=== PATIENT | male | born 1950 | race African-American/Black ===

== ENCOUNTER 2017-10-28 07:56 | Day surgery (SDC) | payer OTHER ==
[2017-10-27 13:30] VITALS: BMI 27.6
[~2017-10-28 07:56] MED LIST: CYCLOPENTOLATE HCL 1% OPHTH SOLN 2 ML BOTTLE OP SCH; MOXIFLOXACIN HCL 0.5% OPHTHALMIC 3 ML BOTTLE OP SCH; PHENYLEPHRINE 2.5% OPHTH SOLN 15 ML BOTTLE OP SCH; TOBRAMYCIN/DEXAMETHASONE OPHTH. OINTMENT 1 TUBE TP ONE; TROPICAMIDE 1% OPHTH SOLN 15 ML BOTTLE OP SCH
[2017-10-28] MEDS ORDERED: PHENYLEPHRINE 2.5% OPHTH SOLN 15 ML BOTTLE ONE (08:11)
[2017-10-28] MEDS ORDERED: TROPICAMIDE 0.5% OPHTHALMIC SOLN 15 ML BOTTLE ONE (08:11)
[2017-10-28] MEDS ORDERED: MOXIFLOXACIN HCL 0.5% OPHTHALMIC 3 ML BOTTLE ONE (08:11)
[2017-10-28] MEDS ORDERED: CYCLOPENTOLATE HCL 1% OPHTH SOLN 2 ML BOTTLE ONE (08:11)
[2017-10-28] MEDS ORDERED: LIDOCAINE HCL/PF 2% SDV 5ML VIAL PNB ONE (08:17)
[2017-10-28] MEDS ORDERED: BUPIVACAINE HCL/PF 0.75% 10 ML VIAL RB ONE (08:17)
[2017-10-28] MEDS ORDERED: TOBRAMYCIN/DEXAMETHASONE OPHTH. OINTMENT 1 TUBE ONE (08:48)
[2017-10-28] MEDS ORDERED: TETRACAINE 0.5% OPHTH SOLN 2 ML BOTTLE ONE (08:48)
[2017-10-28] MEDS ORDERED: LIDOCAINE HCL/PF 2% SDV 5ML VIAL ONE ×2 (08:48→09:00)
[2017-10-28] MEDS ORDERED: LIDOCAINE HCL/PF 1% SDV 5ML VIAL ONE (08:48)
[2017-10-28] MEDS ORDERED: BUPIVACAINE HCL/PF 0.75% 10 ML VIAL ONE (08:49)
--- NOTE | 2017-10-28 08:56 | HP ---
History & Physical Update - History History: No Change - Physical Physical: No Change - Assessment Assessment: No Change - Plan Plan: No Change (Vicenta Rivas)
[2017-10-28] MEDS ORDERED: MIDAZOLAM HCL 2 MG/2 ML SINGLE DOSE VIAL ONE (09:01)
[2017-10-28] MEDS ORDERED: PROPOFOL 20 ML ONE ×2 (09:01)
[2017-10-28] MEDS ORDERED: TETRACAINE 0.5% OPHTH SOLN 2 ML BOTTLE TP ONE (09:12)
[2017-10-28] MEDS ORDERED: LIDOCAINE HCL 1% PRESERVATIVE FREE - 30ML VIAL IO ONE (09:25)
[2017-10-28] MEDS ORDERED: CHONDROITIN SU A/HYALUR SOD 1 KIT IO ONE (09:27)
[2017-10-28] MEDS ORDERED: TOBRAMYCIN/DEXAMETHASONE OPHTH. OINTMENT 1 TUBE TP ONE (09:53)
[2017-10-28 11:01] VITALS: BP 139/79; PULSE 66; TEMP 98.3
--- NOTE | 2017-10-28 13:58 | OP ---
DATE OF OPERATION: 10/28/2017 SURGEON: Meño Dumont MD PREOPERATIVE DIAGNOSIS: Cataract, left eye. OPERATION: Phacoemulsification and intraocular lens implantation, left eye. POSTOPERATIVE DIAGNOSIS: Cataract, left eye. ANESTHESIA: Local with intravenous sedation. COMPLICATIONS: None. BLOOD LOSS: None. SPECIMENS: None. BRIEF HISTORY: The patient is 57-year-old man with a past medical history of diabetes, who presents with decreased vision in the left eye down to 20/50 minus due to a 2+ nuclear sclerotic lens with a cortical opacity. After the risks, benefits, and alternatives to cataract surgery were discussed with the patient, he consented to surgery for the left eye. DESCRIPTION OF PROCEDURE: The patient was brought to the operating room and administered retrobulbar block after receiving intravenous sedation. He was then prepped and draped in the usual sterile fashion, and an eyelid speculum was inserted in the left eye. A paracentesis was made and the anterior chamber was inflated with nonpreserved lidocaine. This was followed by injection of Viscoat. A groove was made in the superotemporal clear cornea which was tunneled forward with a crescent blade. The anterior chamber was entered with a 2.75 keratome. At this point it was noted that there was a poorly dilating pupil down to about 4 mm; however, the pupil would constrict further when the anterior chamber shallowed slightly. It was determined to place 4 iris hooks around the pupil in order to enlarge and stabilize the pupil. This was done without incident. A cystotome was used to make an incision in the center of the capsule, and a continuous curvilinear capsulorrhexis was created. The lens was hydrodissected until it was found to rotate freely within the capsular bag. Phacoemulsification was then used to remove the lens in its entirety. Irrigation and aspiration were used to remove residual cortical material. The anterior chamber and capsular bag were reinflated with Provisc, and a 22.5 diopter [id number] AcrySof intraocular lens was injected into the capsular bag using the [place] injector. The lens was dialed into place using TwoChop hook. Irrigation and aspiration were used to remove residual Viscoelastic. The wound was stromally hydrated until it was found to be watertight and the eye was at an appropriate pressure. The eyelid speculum was removed from the eye, and TobraDex ointment and a patch and shield were placed over the left eye. The patient was transferred to the recovery room in stable condition and will follow up tomorrow. Vaughn [id number] MTDD
== END 2017-10-28 11:15 | disposition home or self-care (01) ==
LOC: JASU-SURG 07:56
PROVIDERS: ATTEND Ophthalmology
PROC: 08RK3JZ Replacement of Left Lens with Synthetic Substitute, Percutaneous Approach (ICD-10-PCS; principal; 2017-10-28 09:00)
DX: H25.12 Age-related nuclear cataract, left eye (principal); H57.09 Other anomalies of pupillary function
CPT/HCPCS: 82962

== ENCOUNTER 2018-07-01 10:08 | Emergency (ER) | payer OTHER ==
[2018-07-01 10:26] VITALS: BMI 27.3
--- NOTE | 2018-07-01 11:08 | PDOC ---
Attending Attestation - HPI HPI: 07/01/18 12:26 The patient is a 68-year-old male with past medical history significant for DM and HTN presents to the emergency department with an abscess to the L. side of the face. The patient presents with a boil to the angle of the jaw, with occasional purulent drainage. The patient currently denies any pain, states the pain varies in severity the patient report following up with PCP in March regarding the facial abscess, who referred the patient to a CT scan. The patient reports secondary to insurance issues, and the patient was unable to get the scan. Denies fever, chills, drainage inside the mouth, no prior similar incident. Allergies: NKA Social history: Current everyday smoker. No alcohol or recreational drug use reported. Surgical history: None reported. PCP: Dr. Moura. - Physicial Exam PE: 07/01/18 12:32 GENERAL: The patient is in no acute distress. LUNGS: Breath sounds equal, clear to auscultation bilaterally. No wheezes, and no crackles. HEART:Regular rate and rhythm, normal S1 and S2 without murmur, rub or gallop. ABDOMEN: Soft, nontender. No guarding, no rebound. No masses palpable. SKIN: +2 cm in diameter, fluctuant, swelling to the angle of the mandible, nontender, no redness, warmth or draining noted. Rest of the skin: Warm, Dry, normal turgor, no rashes or lesions noted. - Medical Decision Making 07/01/18 12:26 Documentation prepared by Chrystal Osei, acting as family practice medical doctor for Mily Begum MD. <Chrystal Osei - Last Filed: 07/01/18 12:36> - Medical Decision Making 07/01/18 15:[address] Earl, surgery; awaiting call back. 07/01/18 15:11 Case d/w Dr. Earl. 07/01/18 15:[address] Burleson, ENT; awaiting call back. <Shannen Barriga - Last Filed: 07/01/18 15:16> - Resident Resident Name: Courtney Arrieta - ED Attending Attestation I have performed the following: I have examined & evaluated the patient, The case was reviewed & discussed with the resident, I agree w/resident's findings & plan, Exceptions are as noted - HPI HPI: 07/02/18 11:21 68 yo M presenting to the ER for evaluation of swelling at the angle of the mandible Present for the past 3 months It increases in size and decreases in size No fever or chills Was supposed to follow up for CT (Sent by pmd) but his insurance did not cover the imaging Pt presents today because the swelling has not improved and he was unable to get imaging No pain - Physicial Exam PE: 07/02/18 11:22 GENERAL: The patient is in no acute distress. LUNGS: Breath sounds equal, clear to auscultation bilaterally. Nowheezes, and no crackles. HEART:Regular rate and rhythm, normal S1 and S2 without murmur, rub or gallop. ABDOMEN: Soft, nontender. No guarding, no rebound. No masses palpable. SKIN: +2 cm in diameter, fluctuant, swelling to the angle of the mandible, nontender, no redness, warmth or draining noted. Rest of the skin: Warm, Dry, normal turgor, no rashes or lesions noted. - Medical Decision Making CT demonstrates rim enhancing abscess vs.; cyst Call placed to Dr Earl, this is outside of her scope Call placed to Dr Burleson He will see this patient in the ER, requesting dose of Zosyn Pt signed out to Dr Craig pending assessment by Dr Burleson Clinical impression: cyst, initial presentation <Mily Begum - Last Filed: 07/02/18 11:24>
--- NOTE | 2018-07-01 11:24 | PDOC ---
History of Present Illness - General Chief Complaint: Abscess Boil Stated Complaint: ABSCESS BOIL Time Seen by Provider: 07/01/18 11:07 - History of Present Illness Initial Comments: Thomas Trivedi is a 68yo man with a PMH of HTN, HLD, DM, and BPH who presents due to a "boil" on the left side of his face. It is located over the angle of the jaw. He reports that he went to see his PMD Dr Moura in March, and he was told to get a CT scan. However, he was unable to do so due to insurance issues. He went back to see Dr Moura, but he states nothing was done at the time. Mr Trivedi reports that the boil occasionally "bursts" with drainage of pus, then clear fluid and blood. He states that the size fluctuates, though it tends to increase until bursting. The level of pain also fluctuates; he denies any pain recently. He denies that the boil prevents him from opening his mouth, and he has never noted any discharge or drainage into his mouth. He denies fevers/ chills, red streaking over or around the boil, or similar incidents in the past. He denies any other associated symptoms. Past History - Past Medical History Allergies/Adverse Reactions: Allergies Allergy/AdvReac Type Severity Reaction Status Date / Time No Known Allergies Allergy Verified 07/01/18 10:21 Home Medications: Ambulatory Orders Amlodipine Besylate 10 mg PO DAILY 10/28/17 Atorvastatin Ca [Lipitor] 40 mg PO HS 10/28/17 Glipizide [Glipizide ER] 2.5 mg PO DAILY 10/28/17 Losartan Potassium [Cozaar] 100 mg PO DAILY 10/28/17 Metformin HCl [Metformin HCl ER] 1,000 mg PO BID 10/28/17 Tamsulosin HCl [Flomax] 0.4 mg PO DAILY 10/28/17 Triamterene/Hydrochlorothiazid [Triamterene-Hctz 37.5-25 mg Cp] 1 each PO DAILY 10/28/17 COPD: No Diabetes: Yes HTN: Yes - Immunization History Immunization Up to Date: Yes - Suicide/Smoking/Psychosocial Hx Smoking History: Current some day smoker Have you smoked in the past 12 months: No Number of Cigarettes Smoked Daily: 1 If you are a former smoker, when did you quit?: 1yr ago Information on smoking cessation initiated: No Hx Alcohol Use: No Drug/Substance Use Hx: No Substance Use Type: None Hx Substance Use Treatment: No Review of Systems - Review of Systems Comments:: General: No fevers, no chills, no weight or appetite change, no malaise HEENT: No changes in vision, no changes in hearing, no congestion, no sore throat CV: No chest pain, no palpitations, no LE edema Pulm: No SOB, no cough, no wheezing GI: No nausea or vomiting, no change in bowel habits, no melena : No frequency, no urgency, no dysuria Musc: No back pain, no joint swelling, no recent injury Skin: See HPI. No rashes. Endo: No excessive thirst, no heat/cold intolerance Heme: No unusual bruising or bleeding, no swollen glands Neuro: No syncope, no numbness/tingling, no focal weakness Vasc: No claudication Psych: No recent change in mood, no SI or HI *Physical Exam - Vital Signs Last Vital Signs Temp Pulse Resp BP Pulse Ox 98.0 F 70 18 167/77 100 07/01/18 10:21 07/01/18 10:21 07/01/18 10:21 07/01/18 10:21 07/01/18 10:21 - Physical Exam Comments: General: Comfortable, no acute distress HEENT: PERRL, EOMI, MMM, voice normal, normal neck ROM, no LAD. Swollen, fluctuant v indurated area over left mandibular angle with small scabbed area in the center. Cards: RRR, no murmur appreciated Pulm: Comfortable on room air, clear to auscultation bilaterally Ext: Atraumatic. No LE edema. ROM intact. Strength 5/5 and equal bilaterally Vasc: Extremities WWP. Skin: Normal color, no rashes or lesions Neuro: A&Ox3, CN grossly intact, normal speech, motor/sensory grossly intact and symmetric Psych: Mood appropriate to situation ED Treatment Course - LABORATORY CBC & Chemistry Diagram: 07/01/18 12:25 07/01/18 12:25 Medical Decision Making - Medical Decision Making 07/01/18 12:06 Thomas Trivedi is a 68yo man with a PMH of HTN, NIIDM, HLD who presents with an abscess/boil vs cyst since early March. - Given history of recurrent growth and "bursting" most likely abscess, boil, or cyst - No clear involvement of the mouth or ear - CT face w/o contrast ordered to evaluate depth and involvement. 07/01/18 13:25 - Labs completed. Reviewed. No concerning abnormalities. - CT needs to be completed. 07/01/18 14:17 - CT reviewed. No fluid collection noted, appears to be tissue swelling only. Radiology read pending - Will likely need follow up with surgery for removal. May be a cyst that has become intermittently infected. 07/01/18 15:12 - CT read. 3 x 1.7 rim-enhancing, fluid-filled lesion c/w abscess v infected cyst - Call placed to surgery. Spoke to Dr Earl, but group does not do head/neck procedures - Call placed to Dr Burleson in ENT. 07/01/18 15:41 - Spoke to Dr Burleson. Recommending IV antibiotic loading. Will be in ED around 7pm - Discussed with patient. He will wait to see the specialist. He agrees to alert ED staff if he decides to leave prior to seeing Dr Burleson so that he can be discharged with appropriate medications and instructions. - Unasyn IV ordered. - Will need to be ED obs. 07/01/18 19:27 - Patient still waiting for eval by ENT - Latest vitals with BP 180/80. Will check repeat vitals, if still hypertensive will need intervention. - ED obs, spoke to medicine team again. Patient signed out to Dr Pineda for remainder of care. Courtney Arrieta PGY1 *DC/Admit/Observation/Transfer Diagnosis at time of Disposition: Swelling of mandible - Discharge Dispostion Condition at time of disposition: Stable Decision to Admit order: No - Referrals Referrals: Kamila Moura [Primary Care Provider] - Jacky Burleson MD [Staff Physician] - - Patient Instructions Additional Instructions: Discharge Instructions: You were seen in the emergency department for a swelling on the left side of your face. You had a CT scan that showed swelling but no collection of fluid or infection. You may have a cyst that will require surgical removal, but there was not any fluid that could be drained right away. If you notice that the area is becoming more red, painful, and swollen or if you notice thick white drainage, you may take medication such as ibuprofen ( 600mg or three tablets every 6-8 hours) for discomfort. Applying warm compresses may help with your symptoms. Please make an appointment to follow up with a surgeon for evaluation. You have been referred to the [facility] with Dr Earl or Dr Melo. Seek immediate medical care if the swollen area becomes severely painful, you notice redness that travels across your face/head, you have a high fever to 101F or higher, or you have neurological symptoms such as a drooping face or voice changes. - Post Discharge Activity
[2018-07-01 12:47] LABS: BASO % 0.9 % (0-2.0); EOS % 3.5 % (0-4.5); HEMATOCRIT 40.3 % (35.4-49); HEMOGLOBIN 12.8 GM/dL (11.7-16.9); MCH 27.9 pg (25.7-33.7); MCHC 31.7 g/dl (32.0-35.9); MEAN CELL VOLUME 88.2 fl (80-96); MONO % 8.7 % (3.8-10.2); NEUT % 44.9 % (42.8-82.8); PLATELET COUNT 269 K/MM3 (134-434); RBC 4.57 M/mm3 (4.00-5.60); RDW 12.6 % (11.9-15.9); WHITE BLOOD COUNT 4.9 K/mm3 (4.0-10.0)
[2018-07-01 12:53] LABS: INR 0.99 (0.83-1.09); PROTHROMBIN TIME (PATIENT) 11.7 SEC (9.7-13.0)
[2018-07-01 12:55] LABS: ACTIVATED PTT 29.7 SECONDS (25.2-36.5)
[2018-07-01 13:03] LABS: ALBUMIN 3.7 g/dl (3.4-5.0); ALK PHOS 95 U/L (45-117); ANION GAP 5 MMOL/L (8-16); BILIRUBIN,TOTAL 0.5 mg/dL (0.2-1); BLOOD UREA NITROGEN 13 mg/dL (7-18); CALCIUM 9.6 mg/dL (8.5-10.1); CHLORIDE 101 mmol/L (98-107); CO2 32 mmol/L (21-32); CREATININE 1.1 mg/dL (0.55-1.3); GLUCOSE,RANDOM 120 mg/dL (74-106); POTASSIUM 4.1 mmol/L (3.5-5.1); SGOT/AST 17 U/L (15-37); SGPT/ALT 23 U/L (13-61); SODIUM 138 mmol/L (136-145); TOT PROT 8.4 g/dl (6.4-8.2)
[2018-07-01 14:43] VITALS: TEMP 98.3
[2018-07-01] MEDS ORDERED: AMPICILLIN NA/SULBACTAM NA 3 GM in SODIUM CHLORIDE 100 ML IVPB ONE (15:37)
--- NOTE | 2018-07-01 19:11 | HP ---
CHIEF COMPLAINT: face welling PCP: HISTORY OF PRESENT ILLNESS: This is a 68 year old male with a history of hypertension and diabetes mellitus II, who presents with a three month history of left face swelling. Patient states he has a cyst inside his cheek. Now with intermittent puss draining from the outside. Denies fevers, chills, n, v, bleeding, open sores in mouth, dysphagia, problems with chewing. He has never had any skin boils or eruptions in the past. ER course was notable for: CT scan revealing a 3 x 1.7 x 1.3 cm rim-enhancing subcutaneous fluid structure is seen overlying the left masseter muscle which may be on the basis of an abscess versus infected cyst/boil. Recent Travel: non e PAST MEDICAL HISTORY: HTN, DMII PAST SURGICAL HISTORY: prostate Social History: Smoking:occasional in the past Alcohol:none Drugs: none Family History: Allergies No Known Allergies Allergy (Verified 07/01/18 10:21) HOME MEDICATIONS: Home Medications Medication Instructions Recorded Amlodipine Besylate 10 mg PO DAILY 10/28/17 Atorvastatin Ca [Lipitor] 40 mg PO HS 10/28/17 Glipizide [Glipizide ER] 2.5 mg PO DAILY 10/28/17 Losartan Potassium [Cozaar] 100 mg PO DAILY 10/28/17 Metformin HCl [Metformin HCl ER] 1,000 mg PO BID 10/28/17 Tamsulosin HCl [Flomax] 0.4 mg PO DAILY 10/28/17 Triamterene/Hydrochlorothiazid 1 each PO DAILY 10/28/17 [Triamterene-Hctz 37.5-25 mg Cp] REVIEW OF SYSTEMS CONSTITUTIONAL: Absent: fever, chills, diaphoresis, generalized weakness, malaise, loss of appetite, weight change HEENT: Absent: rhinorrhea, nasal congestion, throat pain, throat swelling, difficulty swallowing, mouth swelling, ear pain, eye pain, visual changes CARDIOVASCULAR: Absent: chest pain, syncope, palpitations, irregular heart rate, lightheadedness , peripheral edema RESPIRATORY: Absent: cough, shortness of breath, dyspnea with exertion, orthopnea, wheezing, stridor, hemoptysis GASTROINTESTINAL: Absent: abdominal pain, abdominal distension, nausea, vomiting, diarrhea, constipation, melena, hematochezia GENITOURINARY: Absent: dysuria, frequency, urgency, hesitancy, hematuria, flank pain, genital pain MUSCULOSKELETAL: Absent: myalgia, arthralgia, joint swelling, back pain, neck pain SKIN: Absent: left face swelling HEMATOLOGIC/IMMUNOLOGIC: Absent: easy bleeding, easy bruising, lymphadenopathy, frequent infections ENDOCRINE: Absent: unexplained weight gain, unexplained weight loss, heat intolerance, cold intolerance NEUROLOGIC: Absent: headache, focal weakness or paresthesias, dizziness, unsteady gait, seizure, mental status changes, bladder or bowel incontinence PSYCHIATRIC: Absent: anxiety, depression, suicidal or homicidal ideation, hallucinations. PHYSICAL EXAMINATION Vital Signs - 24 hr 07/01/18 07/01/18 10:21 14:42 Temperature 98.0 F 98.3 F Pulse Rate 70 Pulse Rate [ 62 Right Radial] Respiratory 18 18 Rate Blood Pressure 167/77 Blood Pressure 181/81 H [Left Arm] O2 Sat by Pulse 100 100 Oximetry (%) GENERAL: Awake, alert, and fully oriented, in no acute distress. HEAD: Normal with no signs of trauma. LEft cheek with large; ping pong ball sized, indurated region along jaw ling; no current pus or draining, with pin point area in the middle, non tender EYES: Pupils equal, round and reactive to light, extraocular movements intact, sclera anicteric, conjunctiva clear. No lid lag. EARS, NOSE, THROAT: Ears normal, nares patent, oropharynx clear without exudates. Moist mucous membranes. NECK: Normal range of motion, supple without lymphadenopathy, JVD, or masses. LUNGS: Breath sounds equal, clear to auscultation bilaterally. No wheezes, and no crackles. No accessory muscle use. HEART: Regular rate and rhythm, normal S1 and S2 without murmur, rub or gallop. ABDOMEN: Soft, nontender, not distended, normoactive bowel sounds, no guarding, no rebound, no masses. No hepatomegaly or splenomegaly. MUSCULOSKELETAL: Normal range of motion at all joints. No bony deformities or tenderness. No CVA tenderness. UPPER EXTREMITIES: 2+ pulses, warm, well-perfused. No cyanosis. No clubbing. No peripheral edema. LOWER EXTREMITIES: 2+ pulses, warm, well-perfused. No calf tenderness. No peripheral edema. NEUROLOGICAL: Cranial nerves II-XII intact. Normal speech. Normal gait. PSYCHIATRIC: Cooperative. Good eye contact. Appropriate mood and affect. SKIN: Warm, dry, normal turgor, no rashes or lesions noted, normal capillary refill. Laboratory Results - last 24 hr 07/01/18 07/01/18 07/01/18 12:25 12:25 12:25 WBC 4.9 RBC 4.57 Hgb 12.8 Hct 40.3 MCV 88.2 MCH 27.9 MCHC 31.7 L RDW 12.6 Plt Count 269 MPV 8.0 Absolute Neuts (auto) 2.2 Neutrophils % 44.9 Lymphocytes % 42.0 H Monocytes % 8.7 Eosinophils % 3.5 Basophils % 0.9 Nucleated RBC % 0 PT with INR 11.70 INR 0.99 PTT (Actin FS) 29.7 Sodium 138 Potassium 4.1 Chloride 101 Carbon Dioxide 32 Anion Gap 5 L BUN 13 Creatinine 1.1 Creat Clearance w eGFR > 60 Random Glucose 120 H Calcium 9.6 Total Bilirubin 0.5 AST 17 ALT 23 Alkaline Phosphatase 95 Total Protein 8.4 H Albumin 3.7 ASSESSMENT/PLAN: This is a 68 year old male with a history of hypertension, DMII, who presents with left face swelling for the past three months. CT revealing fluid structure. R.o abscess vs infected boil. #left face swelling; likely abscess -afebrile; wbc wnl -loaded with unasyn in eED -DR Burleson to evaluate for furhter work up; if need for inpatient IV antibiotics vs possible drain? /sx ? #hypertension: -hypertensive in ED -will recheck -restart home meds #DM: -sugar controlled -in stays inpatient will start SSS; bgm Dispo: currently ED obs; pending Dr Benjy armendariz; Visit type - Emergency Visit Emergency Visit: Yes Care time: The patient presented to the Emergency Department on the above date and was hospitalized for further evaluation of their emergent condition. - New Patient This patient is new to me today: Yes Date on this admission: 07/01/18 - Critical Care Critical Care patient: No
[2018-07-01 19:30] VITALS: BP 177/94; PULSE 60
--- NOTE | 2018-07-01 20:02 | CON.ENT ---
Consult Consult Specialty:: ENT Referred by:: Dr. Arrieta Reason for Consultation:: left facial swelling, rule out abscess - History of Present Illness History of Present Illness: 68yo M with 3 month hx left facial swelling, never any pain, sometimes gets swollen and pt expresses fluid out from it, size goes down, then fills up again. does not have any other similar skin problem in other parts of body. PMD Dr. Moura gave pt order for CT scan of this area months ago but pt did not have scan done. pt presented today, abscess considered, IV Unasyn administered, CT scan of neck obtained - History Source History Provided By: Patient, Medical Record - Alcohol/Substance Use Hx Alcohol Use: No - Smoking History Smoking history: Current some day smoker Have you smoked in the past 12 months: No Aproximately how many cigarettes per day: 1 If you are a former smoker, when did you quit?: 1yr ago Home Medications - Allergies Allergies/Adverse Reactions: Allergies Allergy/AdvReac Type Severity Reaction Status Date / Time No Known Allergies Allergy Verified 07/01/18 10:21 - Home Medications Home Medications: Ambulatory Orders Amlodipine Besylate 10 mg PO DAILY 10/28/17 Atorvastatin Ca [Lipitor] 40 mg PO HS 10/28/17 Glipizide [Glipizide ER] 2.5 mg PO DAILY 10/28/17 Losartan Potassium [Cozaar] 100 mg PO DAILY 10/28/17 Metformin HCl [Metformin HCl ER] 1,000 mg PO BID 10/28/17 Tamsulosin HCl [Flomax] 0.4 mg PO DAILY 10/28/17 Triamterene/Hydrochlorothiazid [Triamterene-Hctz 37.5-25 mg Cp] 1 each PO DAILY 10/28/17 Physical Exam-ENT Vital Signs: Vital Signs Temperature 98.3 F 07/01/18 14:42 Pulse Rate 60 07/01/18 19:30 Respiratory Rate 20 07/01/18 19:30 Blood Pressure 177/94 H 07/01/18 19:30 O2 Sat by Pulse Oximetry (%) 100 07/01/18 19:30 Constitutional: Yes: Well Nourished, No Distress, Calm Head: Yes: WNL Face: Yes: Other (left facial cystic swelling 3 cm, mobile, nontender, dry, has small areas of skin thinning, suspected prior drainage sites, but dry today. no induration or fluctuance, no local warmth) Eyes: Yes: WNL Nasal Passage: Yes: WNL Oral/Pharynx: Yes: Other (dentures, no lesions, oropharynx no drainage) Outer Ear: Yes: WNL Ear Canal: Yes: WNL Tympanic Membrane: Yes: WNL Neck: Yes: Other (no mass node trachea midline , no salivary or thyroid gland abnormality palpable.) Imaging - Results Chest X-ray: Report Reviewed, Image Reviewed (left facial cystic lesion, well circumscribed, subcutaneous plane, superficial to masseter muscle) Problem List - Problems (1) Swelling of mandible Assessment/Plan: 3 month hx of painless swelling of left face over vertical ramus of mandible. intermittent expression whitish material from the skin, size goes down then increases after clinically consistent with epidermal inclusion cyst no inflammatory signs and never any pain over 3 months. Recommend may cover with keflex discussed elective excision of this facial cyst in future follow-up in office 1-2 weeks Thank you for consultation, Jacky Burleson MD FACS Code(s): R22.0 - LOCALIZED SWELLING, MASS AND LUMP, HEAD
--- NOTE | 2018-07-01 20:05 | PN ---
Teaching Attending Note Name of Resident: Parviz Carl ATTENDING PHYSICIAN STATEMENT I saw and evaluated the patient. I reviewed the resident's note and discussed the case with the resident. I agree with the resident's findings and plan as documented. SUBJECTIVE: Patient is a 68 year old man with a PMH of HTN, HLD, NIDDM, Tobacco use and BPH who presents due to a "boil" on the left side of his face. It is located over the angle of the jaw. He reports that he went to see his PMD Dr Moura in March, and he was told to get a CT scan. However, he was unable to do so due to insurance issues. He went back to see Dr Moura, but he states nothing was done at the time. He says that the boil occasionally "bursts" with drainage of pus, then clear fluid and blood. He states that the size fluctuates, though it tends to increase until bursting. The level of pain also fluctuates; he denies any pain recently. He denies that the boil prevents him from opening his mouth, and he has never noted any discharge or drainage into his mouth. He denies fevers/ chills, red streaking over or around the boil, or similar incidents in the past. He denies any other associated symptoms. OBJECTIVE: Alert Vital Signs Period Temp Pulse Resp BP Sys/Cooper Pulse Ox Last 24 Hr 98.0 F-98.3 F 60-70 18-20 167-181/77-94 100-100 HEENT: No Jaundice, eye redness or discharge, PERRLA, EOMI. Swollen, fluctuant area over left mandibular angle with small scabbed area in the center. Normocephalic, atraumatic. External ears are normal and hearing is grossly intact. No nasal discharge. Neck: Supple, nontender. No palpable adenopathy or thyromegaly. No JVD Chest: Good effort. Clear to auscultation and percussion. Heart: Regular. No S3, rub or murmur Abdomen: Not distended, soft, nontender and no HSM. No rebound or guarding. Normoactive bowel sounds. Ext: Peripheral pulses intact. No leg edema. Skin: Warm and dry. No petechiae, rash or ecchymosis. Neuro: Alert. Oriented x3. CN 2-12 grossly intact. Sensation grossly intact in all four extremities and DTR are symmetric. Home Medications Medication Instructions Recorded Amlodipine Besylate 10 mg PO DAILY 10/28/17 Atorvastatin Ca [Lipitor] 40 mg PO HS 10/28/17 Glipizide [Glipizide ER] 2.5 mg PO DAILY 10/28/17 Losartan Potassium [Cozaar] 100 mg PO DAILY 10/28/17 Metformin HCl [Metformin HCl ER] 1,000 mg PO BID 10/28/17 Tamsulosin HCl [Flomax] 0.4 mg PO DAILY 10/28/17 Triamterene/Hydrochlorothiazid 1 each PO DAILY 10/28/17 [Triamterene-Hctz 37.5-25 mg Cp] Abnormal Lab Results 07/01/18 07/01/18 12:25 12:25 MCHC 31.7 L Lymphocytes % 42.0 H Anion Gap 5 L Random Glucose 120 H Total Protein 8.4 H ASSESSMENT AND PLAN: 1. Left facial abscess/cyst - Got one dose of Unasyn in the ER. ENT feels is likely a cyst rather than an abscess. Will send fluid for culture and give him Keflex. Follow up with PCP and ENT as outpatient. Restart home antihypertensive drugs to address uncontrolled hypertension - nonpharmacological measures like reduced salt intake and exercise emphasized. 2. DM - For now, we will hold the home diabetes drugs and implement sliding scale insulin regimen. Provide comprehensive diabetes care with patient teaching and counseling about the importance of euglycemia, eye care and foot care. 3. Tobacco Use We will provide patient all the necessary assistance to facilitate smoking cessation and prescribe Nicotine patch. 4. DVT prophylaxis - Lovenox 40 mg SQ q 24 hours. 5. Advance directives - Full code
--- NOTE | 2018-07-01 20:49 | DS ---
Physical Exam: SUBJECTIVE: Patient seen and examined at bedside. No new complaints. Was seen by ENT, who diagnosed a cyst and recommended PO keflex for 1 week. OBJECTIVE: Vital Signs Period Temp Pulse Resp BP Sys/Cooper Pulse Ox Last 24 Hr 98.0 F-98.3 F 60-70 18-20 167-181/77-94 100-100 PHYSICAL EXAM GENERAL: The patient is awake, alert, and fully oriented, in no acute distress. HEAD: Normal with no signs of trauma. EYES: PERRL, extraocular movements intact, sclera anicteric, conjunctiva clear. ENT: Ears normal, nares patent, oropharynx clear without exudates, moist mucous membranes. There is an area of swelling on the patient's left side at the angle of the mandible. The swelling is fluctuant, nontender, not warm to touch. NECK: Trachea midline, full range of motion, supple. LUNGS: Breath sounds equal, clear to auscultation bilaterally, no wheezes, no crackles, no accessory muscle use. HEART: Regular rate and rhythm, S1, S2 without murmur, rub or gallop. ABDOMEN: Soft, nontender, nondistended, normoactive bowel sounds, no guarding, no rebound, no hepatosplenomegaly, no masses. EXTREMITIES: 2+ pulses, warm, well-perfused, no edema. NEUROLOGICAL: Cranial nerves II through X grossly intact. Normal speech, gait not observed. PSYCH: Normal mood, normal affect. SKIN: Warm, dry, normal turgor, no rashes or lesions noted. LABS Laboratory Results - last 24 hr 07/01/18 07/01/18 07/01/18 12:25 12:25 12:25 WBC 4.9 RBC 4.57 Hgb 12.8 Hct 40.3 MCV 88.2 MCH 27.9 MCHC 31.7 L RDW 12.6 Plt Count 269 MPV 8.0 Absolute Neuts (auto) 2.2 Neutrophils % 44.9 Lymphocytes % 42.0 H Monocytes % 8.7 Eosinophils % 3.5 Basophils % 0.9 Nucleated RBC % 0 PT with INR 11.70 INR 0.99 PTT (Actin FS) 29.7 Sodium 138 Potassium 4.1 Chloride 101 Carbon Dioxide 32 Anion Gap 5 L BUN 13 Creatinine 1.1 Creat Clearance w eGFR > 60 Random Glucose 120 H Calcium 9.6 Total Bilirubin 0.5 AST 17 ALT 23 Alkaline Phosphatase 95 Total Protein 8.4 H Albumin 3.7 HOSPITAL COURSE: Date of Admission:07/01/18 This is a 68 year old male with a PMH HTN, DMII who presented to the ED with a three month history of left face swelling at the angle of the mandible. Patient endorsed expressing a whitish substance from the lesion after which the swelling goes down, but states that it fills up again. In the ED, he was found to be afebrile and hypertensive in the 180's. A CT of the head showed a 3 x 1.7 x 1.3 cm rim-enhancing subcutaneous fluid structure over the left masseter muscle. The patient was given 1 dose of Unasyn and ENT was consulted from the ED. Dr. Burleson assessed the patient and diagnosed epidermal inclusion cyst. He recommended Keflex for 1 week and f/u as an outpatient in 1-2 weeks to discuss elective excision of the lesion. Upon repeat assessment, the patient's BP had lowered into the 160's. He had no new complaints and agreed with the follow up plan discussed. The patient was discharged home with Keflex 500mg q6h for 7 days. Prescriptions for his BP medications were also provided as the patient stated that he ran out. He was encouraged to follow up with his PCP within 1 week of discharge home and also encouraged to follow up with Dr. Burleson in 1-2 weeks. Date of Discharge: 07/01/18 Minutes to complete discharge: 45 Discharge Summary Reason For Visit: ABSCESS BOIL Current Active Problems Swelling of mandible (Acute) Condition: Improved - Instructions Diet, Activity, Other Instructions: Discharge Instructions: You were seen in the emergency department for a swelling on the left side of your face. You had a CT scan that showed swelling but no collection of fluid or infection. You may have a cyst that will require surgical removal, but there was not any fluid that could be drained right away. If you notice that the area is becoming more red, painful, and swollen or if you notice thick white drainage, you may take medication such as ibuprofen ( 600mg or three tablets every 6-8 hours) for discomfort. Applying warm compresses may help with your symptoms. Please make an appointment to follow up with a surgeon for evaluation. You have been referred to the [facility] with Dr Earl or Dr Melo. Seek immediate medical care if the swollen area becomes severely painful, you notice redness that travels across your face/head, you have a high fever to 101F or higher, or you have neurological symptoms such as a drooping face or voice changes. Referrals: Kamila Moura [Primary Care Provider] - Jacky Burleson MD [Staff Physician] - Disposition: HOME - Home Medications Comprehensive Discharge Medication List: Ambulatory Orders Atorvastatin Ca [Lipitor] 40 mg PO HS 10/28/17 Glipizide [Glipizide ER] 2.5 mg PO DAILY 10/28/17 Metformin HCl [Metformin HCl ER] 1,000 mg PO BID 10/28/17 Tamsulosin HCl [Flomax] 0.4 mg PO DAILY 10/28/17 Triamterene/Hydrochlorothiazid [Triamterene-Hctz 37.5-25 mg Cp] 1 each PO DAILY 10/28/17 Amlodipine Besylate 10 mg PO DAILY #30 tablet 07/01/18 Cephalexin [Keflex] 500 mg PO Q6H #28 capsule 07/01/18 Losartan Potassium [Cozaar] 100 mg PO DAILY #30 tablet 07/01/18 This patient is new to me today: Yes Date on this admission: 07/01/18 Emergency Visit: Yes Care time: The patient presented to the Emergency Department on the above date and was hospitalized for further evaluation of their emergent condition. Critical Care patient: No - Discharge Referral Referred to [facility] Med P.C.: No
== END 2018-07-01 20:49 | disposition home or self-care (01) ==
LOC: JER 10:08
DX: L72.0 Epidermal cyst (principal); I10 Essential (primary) hypertension; E78.00 Pure hypercholesterolemia, unspecified; E11.9 Type 2 diabetes mellitus without complications; Z79.84 Long term (current) use of oral hypoglycemic drugs
CPT/HCPCS: 36415; 70492-TC; 80053; 85025; 85610; 85730; 99283-25

== ENCOUNTER 2018-07-04 10:48 | Emergency (ER) | payer OTHER ==
[2018-07-04 11:00] VITALS: BMI 27.3
--- NOTE | 2018-07-04 11:40 | PDOC ---
History of Present Illness - General Chief Complaint: Wound Stated Complaint: FACE SWELLING Time Seen by Provider: 07/04/18 10:53 - History of Present Illness Initial Comments: 07/04/18 11:40 68 M with h/o HTN, DM, presenting to ED with L facial swelling. Pt reports this has been an ongoing problem since March of this year. Pt was seen here 3 days ago and had CT showing a L epidermal cyst. Pt was given a dose of Unasyn and sent home on Keflex, with plan to f/u with ENT next week for excision. Pt reports that he has been taking the keflex as prescribed the past 2 days. However, he reports increased swelling. Today, the cyst ruptured, leaking pus and blood. Pt denies any F/C. Denies any significant pain. Past History - Past Medical History Allergies/Adverse Reactions: Allergies Allergy/AdvReac Type Severity Reaction Status Date / Time No Known Allergies Allergy Verified 07/04/18 10:54 Home Medications: Ambulatory Orders Atorvastatin Ca [Lipitor] 40 mg PO HS 10/28/17 Glipizide [Glipizide ER] 2.5 mg PO DAILY 10/28/17 Metformin HCl [Metformin HCl ER] 1,000 mg PO BID 10/28/17 Tamsulosin HCl [Flomax] 0.4 mg PO DAILY 10/28/17 Triamterene/Hydrochlorothiazid [Triamterene-Hctz 37.5-25 mg Cp] 1 each PO DAILY 10/28/17 Amlodipine Besylate 10 mg PO DAILY #30 tablet 07/01/18 Cephalexin Monohydrate [Keflex -] 500 mg PO Q6H #28 capsule 07/01/18 Losartan Potassium 100 mg PO DAILY #30 tablet 07/01/18 Clindamycin [Cleocin -] 300 mg PO Q6HPO #28 capsule 07/04/18 COPD: No Diabetes: Yes HTN: Yes Hypercholesterolemia: Yes - Immunization History Immunization Up to Date: Yes - Suicide/Smoking/Psychosocial Hx Smoking History: Current some day smoker Have you smoked in the past 12 months: Yes Number of Cigarettes Smoked Daily: 1 If you are a former smoker, when did you quit?: 1yr ago Information on smoking cessation initiated: No Hx Alcohol Use: No Drug/Substance Use Hx: Yes (marijuana) Substance Use Type: None Hx Substance Use Treatment: No Review of Systems - Review of Systems Comments:: 07/04/18 11:49 GENERAL/CONSTITUTIONAL: No fever or chills. No weakness. HEAD, EYES, EARS, NOSE AND THROAT: No change in vision. No ear pain or discharge. No sore throat. CARDIOVASCULAR: No chest pain, no shortness of breath, no loss of consciousness RESPIRATORY: No cough, wheezing, or hemoptysis. GASTROINTESTINAL: No nausea, vomiting, diarrhea or constipation. GENITOURINARY: No dysuria, frequency, or change in urination. MUSCULOSKELETAL: No joint or muscle swelling or pain. No neck or back pain. SKIN: + abscess to L cheek NEUROLOGIC: No vertigo, no change in strength/sensation. ENDOCRINE: No increased thirst. No abnormal weight change. HEMATOLOGIC/LYMPHATIC: No anemia, easy bleeding, or history of blood clots. ALLERGIC/IMMUNOLOGIC: No hives or skin allergy. *Physical Exam - Vital Signs Last Vital Signs Temp Pulse Resp BP Pulse Ox 97.4 F L 78 17 182/88 H 100 07/04/18 10:51 07/04/18 10:51 07/04/18 10:51 07/04/18 10:51 07/04/18 10:51 - Physical Exam Comments: 07/04/18 11:50 "GENERAL: Awake, alert, and fully oriented, in no acute distress. HEAD: No signs of trauma EYES: PERRLA, EOMI, sclera anicteric, conjunctiva clear ENT: Auricles normal inspection, hearing grossly normal, nares patent, oropharynx clear without exudates. Moist mucosa NECK: Nontender, no stepoffs, Normal ROM, supple, no lymphadenopathy, JVD, or masses LUNGS: Breath sounds equal, clear to auscultation bilaterally. No wheezes, and no crackles HEART: Regular rate and rhythm, normal S1 and S2, no murmurs, rubs or gallops ABDOMEN: Soft, nontender, normoactive bowel sounds. No guarding, no rebound. No masses EXTREMITIES: Normal range of motion, no edema. No clubbing or cyanosis. No cords, erythema, or tenderness NEUROLOGICAL: Cranial nerves II through XII intact. 5/5 strength and sensation in all extremities, Normal speech, normal gait, normal cerebellar function SKIN: + 3 cm fluctuant, indurated mass to L cheek, scant amount of purulent drainage expressed, no surrounding erythema Procedures - Incision and Drainage I&D Site: Left: Other (cheek) Betadine cleansed: Yes Anesthesia: 1% Lidocaine Blade Size: 11 ED Treatment Course - LABORATORY CBC & Chemistry Diagram: 07/04/18 12:50 07/04/18 12:50 Medical Decision Making - Medical Decision Making 07/04/18 11:50 68 M with infected epidermoid cyst on L cheek. No improvement on Keflex. No signs of systemic illness. - Discuss with ENT, Dr. Burleson 07/04/18 13:12 Case discussed with covering ENT, Dr. Rondon, who recommends I&D and broadening coverage to include MRSA. 07/04/18 13:36 Abscess I&D'ed with drainage of 10cc purulent fluid Pt tolerated procedure well Will DC with clinda Pt noted to have elevated BP in ED. Pt denies CP/SOB/LEE. No evidence of end organ damage. Pt is well appearing, Clinically stable for DC at this time. I discussed the physical exam findings, ancillary test results and final diagnoses with the patient. I answered all of the patient's questions. The patient was satisfied with the care received and felt comfortable with the discharge plan and treatment plan. The patient agrees to follow up with the primary care physician within 24-72 hours. *DC/Admit/Observation/Transfer Diagnosis at time of Disposition: Infected epidermoid cyst - Discharge Dispostion Disposition: HOME - Prescriptions Prescriptions: Clindamycin [Cleocin -] 300 mg PO Q6HPO #28 capsule - Referrals Referrals: Kamila Moura [Primary Care Provider] - Jacky Burleson MD [Staff Physician] - - Patient Instructions Printed Discharge Instructions: DI for Incision and Drainage of a Skin Abscess Additional Instructions: Take the clindamycin as prescribed to treat your skin infection. You have an infected cyst on your cheek that needs to be surgically removed. Call the number provided to make an appointment with Dr. Burleson this Friday. If you experience worsening swelling, pain, fevers, or any other concerning symptoms, return to the ER immediately. You also need to have your blood pressure re-checked by your primary doctor, as it was elevated today. Uncontrolled blood pressure can eventually lead to kidney disease, heart disease, other serious illness, disability, or even . - Post Discharge Activity - Attestations Physician Attestion: 07/04/18 13:41 I, Dr. Thomas Monreal MD, attest that this document has been prepared under my direction and personally reviewed by me in its entirety. I further attest, that it accurately reflects all work, treatment, procedures and medical decision -making performed by me.
[2018-07-04 13:01] LABS: BASO % 0.5 % (0-2.0); EOS % 3.1 % (0-4.5); HEMATOCRIT 36.3 % (35.4-49); HEMOGLOBIN 12.5 GM/dL (11.7-16.9); LYMPH % 27.7 % (8-40); MCH 29.7 pg (25.7-33.7); MCHC 34.3 g/dl (32.0-35.9); MEAN CELL VOLUME 86.6 fl (80-96); MONO % 7.8 % (3.8-10.2); NEUT % 60.9 % (42.8-82.8); PLATELET COUNT 253 K/MM3 (134-434); RBC 4.19 M/mm3 (4.00-5.60); RDW 12.4 % (11.9-15.9); WHITE BLOOD COUNT 4.7 K/mm3 (4.0-10.0)
[2018-07-04 13:22] LABS: ALBUMIN 3.2 g/dl (3.4-5.0); ALK PHOS 89 U/L (45-117); ANION GAP 6 MMOL/L (8-16); BILIRUBIN,TOTAL 0.4 mg/dL (0.2-1); BLOOD UREA NITROGEN 16 mg/dL (7-18); CALCIUM 8.6 mg/dL (8.5-10.1); CHLORIDE 105 mmol/L (98-107); CO2 28 mmol/L (21-32); CREATININE 1.1 mg/dL (0.55-1.3); GLUCOSE,RANDOM 169 mg/dL (74-106); SGOT/AST 18 U/L (15-37); SGPT/ALT 21 U/L (13-61); SODIUM 139 mmol/L (136-145); TOT PROT 7.4 g/dl (6.4-8.2)
[2018-07-04 14:25] VITALS: BP 172/88; PULSE 72; TEMP 98.6
== END 2018-07-04 14:31 | disposition home or self-care (01) ==
LOC: JER 10:48
PROC: 0J910ZZ Drainage of Face Subcutaneous Tissue and Fascia, Open Approach (ICD-10-PCS; principal; 2018-07-04)
DX: L72.0 Epidermal cyst (principal); I10 Essential (primary) hypertension; E78.00 Pure hypercholesterolemia, unspecified; E11.9 Type 2 diabetes mellitus without complications; Z79.84 Long term (current) use of oral hypoglycemic drugs
CPT/HCPCS: 36415; 80053; 85025; 87040; 87070; 87205; 99282-25

== ENCOUNTER 2018-12-26 14:40 | Emergency (ER) | payer OTHER ==
[2018-12-26 15:02] VITALS: TEMP 98.2; BMI 26.6
--- NOTE | 2018-12-26 16:03 | PDOC ---
History of Present Illness - General Chief Complaint: Abscess Boil Stated Complaint: BOIL History Source: Patient Exam Limitations: No Limitations - History of Present Illness Initial Comments: 12/26/18 15:58 Patient came to emergency department with complaints of sore to his bottom" that started on Friday. Denies fever but does not feel well. Is is diabetic but states his blood sugars have been within normal limits, this morning 102. States used some type of cream/boil ease on wound but did not resolve. States is progressively worsening.. No history of abscess or pilonidal cysts. Timing/Duration: reports: getting worse Location: reports: genitalia Associated Symptoms: reports: fever Past History - Travel Traveled outside of the country in the last 30 days: No Close contact w/someone who was outside of country & ill: No - Past Medical History Allergies/Adverse Reactions: Allergies Allergy/AdvReac Type Severity Reaction Status Date / Time No Known Allergies Allergy Verified 07/04/18 10:54 Home Medications: Ambulatory Orders Atorvastatin Ca [Lipitor] 40 mg PO HS 10/28/17 Glipizide [Glipizide ER] 2.5 mg PO DAILY 10/28/17 metFORMIN HCL [Metformin ER Osmotic] 1,000 mg PO BID 10/28/17 Amlodipine Besylate 10 mg PO DAILY #30 tablet 07/01/18 Losartan Potassium 100 mg PO DAILY #30 tablet 07/01/18 COPD: No Diabetes: Yes HTN: Yes Hypercholesterolemia: Yes - Immunization History Immunization Up to Date: Yes - Suicide/Smoking/Psychosocial Hx Smoking History: Never smoked Have you smoked in the past 12 months: No Number of Cigarettes Smoked Daily: 1 If you are a former smoker, when did you quit?: 1yr ago Information on smoking cessation initiated: No Hx Alcohol Use: No Drug/Substance Use Hx: No Substance Use Type: None Hx Substance Use Treatment: No Review of Systems - Review of Systems Able to Perform ROS?: Yes Is the patient limited Spanish proficient: Yes Constitutional: Yes: Symptoms Reported, See HPI, Loss of Appetite, Malaise. No : Fever HEENTM: Yes: See HPI. No: Symptoms Reported ABD/GI: Yes: Symptoms Reported, See HPI. No: Nausea, Vomiting : Yes: Symptoms Reported, See HPI, Other ("boil" to buttock/rectal area progressively worsening) Integumentary: Yes: Symptoms Reported, See HPI, Lesions All Other Systems: Reviewed and Negative *Physical Exam - Vital Signs Last Vital Signs Temp Pulse Resp BP Pulse Ox 98.2 F 76 16 169/95 100 12/26/18 14:52 12/26/18 14:52 12/26/18 14:52 12/26/18 14:52 12/26/18 14:52 - Physical Exam General Appearance: Yes: Nourished, Appropriately Dressed HEENT: positive: ALBA, Normal ENT Inspection, TMs Normal, Pharynx Normal Neck: positive: Supple. negative: Tender Respiratory/Chest: positive: Lungs Clear Gastrointestinal/Abdominal: positive: Soft Rectal Exam: positive: other (patient with external lesion approximately 2 cm to the superior aspect of rectal off. Internal exam reveals mass and tenderness approximately 2 cm interval with exquisite tenderness.) Musculoskeletal: positive: Normal Inspection Extremity: positive: Normal Capillary Refill, Normal Inspection Integumentary: positive: Normal Color Neurologic: positive: enrichment specialist II-XII NML intact, Fully Oriented, Alert ED Treatment Course - LABORATORY CBC & Chemistry Diagram: 12/26/18 16:30 12/26/18 16:30 - RADIOLOGY Radiology Studies Ordered: Category Date Time Status PELVIS CT WITH CONTRAST [CT] Stat CT Scan 12/26/18 15:55 Ordered Progress Note - Progress Note Progress Note: After preliminary exam and identification of a peptic perirectal abscess, patient was changed from fast track to main emergency department. Updated to plan including his . Labs have been ordered and CAT scan will be performed. *DC/Admit/Observation/Transfer Diagnosis at time of Disposition: Rectal pain - Discharge Dispostion Disposition: HOME Condition at time of disposition: Good - Referrals Referrals: Dusty Earl MD [Staff Physician] - Kamila Moura [Primary Care Provider] - - Patient Instructions Printed Discharge Instructions: DI for Anal Abscess Additional Instructions: Please use a sitz bath for management of your symptoms, they can be bought at a pharmacy over the counter. Please call the surgeon below to setup follow up in the next 1-2 weeks. Please return to the ED immediately if you have any new, worsening or concerning symptoms, especially increasing pain and fever. - Post Discharge Activity
--- NOTE | 2018-12-26 16:10 | PDOC ---
Attending Attestation - Resident Resident Name: David Marin - ED Attending Attestation I have performed the following: I have examined & evaluated the patient, The case was reviewed & discussed with the resident, I agree w/resident's findings & plan, Exceptions are as noted - HPI HPI: 12/26/18 16:10 65y M hx of DM, htn, presents with complaint of rectal pain for the past 3 days. Pt notes th epain is worse when he is walking/moving around. denies any fever/chills, pain with bm, n/v, abd pain, cp, sob. pt originally seen in [facility] noted to have palpable masses on buttock and on rectal exam. general: no acute distress abd: soft notnender will obtain ct to r/o perirectal abscess will reassess - Physicial Exam PE: 12/28/18 17:22 see above - Medical Decision Making 12/28/18 17:22 see above
--- NOTE | 2018-12-26 16:10 | PDOC ---
*Physical Exam - Vital Signs Last Vital Signs Temp Pulse Resp BP Pulse Ox 98.2 F 76 16 169/95 100 12/26/18 14:52 12/26/18 14:52 12/26/18 14:52 12/26/18 14:52 12/26/18 14:52 ED Treatment Course - LABORATORY CBC & Chemistry Diagram: 12/26/18 16:30 12/26/18 16:30 Medical Decision Making - Medical Decision Making 12/26/18 16:09 Received signout from Paulina Glaser. Patient is 68M with history of DM and HTN here today with likely mary-rectal abscess. Vitals normal and stable. Fullness and tenderness noted on rectal exam. Pending labs, ct, likely surgical consult. 12/26/18 20:22 CT negative. Repeat rectal exam shows that area burst and is now nontender. Case d/w Dr Monreal, safe for discharge with sitz baths. Given return precautions. *DC/Admit/Observation/Transfer Diagnosis at time of Disposition: Rectal pain - Discharge Dispostion Disposition: HOME Condition at time of disposition: Good Decision to Admit order: No - Referrals Referrals: Kamila Moura [Primary Care Provider] - Dusty Earl MD [Staff Physician] - - Patient Instructions Printed Discharge Instructions: DI for Anal Abscess Additional Instructions: Please use a sitz bath for management of your symptoms, they can be bought at a pharmacy over the counter. Please call the surgeon below to setup follow up in the next 1-2 weeks. Please return to the ED immediately if you have any new, worsening or concerning symptoms, especially increasing pain and fever. - Post Discharge Activity
[2018-12-26] MEDS ORDERED: ACETAMINOPHEN 325 MG TABLET (FP) PO ONE ×2 (16:12→21:08)
[2018-12-26] MEDS ORDERED: ACETAMINOPHEN 325 MG TABLET (FP) ONE ×2 (16:19→21:09)
[2018-12-26 16:46] LABS: BASO % 1.1 % (0-2.0); HEMATOCRIT 39.1 % (35.4-49); HEMOGLOBIN 12.6 GM/dL (11.7-16.9); LYMPH % 23.7 % (8-40); MCH 28.7 pg (25.7-33.7); MCHC 32.3 g/dl (32.0-35.9); MEAN CELL VOLUME 88.9 fl (80-96); MEAN PLT VOLUME 8.5 fl (7.5-11.1); NEUT % 64.2 % (42.8-82.8); PLATELET COUNT 253 K/MM3 (134-434); RDW 12.5 % (11.9-15.9); WHITE BLOOD COUNT 6.4 K/mm3 (4.0-10.0)
[2018-12-26 17:08] LABS: ALBUMIN 3.5 g/dl (3.4-5.0); BILIRUBIN,TOTAL 0.6 mg/dL (0.2-1); CALCIUM 9.4 mg/dL (8.5-10.1); CREATININE 1.1 mg/dL (0.55-1.3); POTASSIUM 4.2 mmol/L (3.5-5.1); TOT PROT 7.8 g/dl (6.4-8.2)
[2018-12-26 17:09] LABS: INR 1.02 (0.83-1.09)
[2018-12-26 17:15] LABS: PH,URINE 6.5 (5.0-8.0); URINE APPEARANCE CLEAR; URINE BILIRUBIN NEGATIVE (NEGATIVE); URINE COLOR YELLOW; URINE GLUCOSE (UA) NEGATIVE (NEGATIVE); URINE KETONE NEGATIVE (NEGATIVE); URINE LEUK ESTERASE NEGATIVE (NEGATIVE); URINE NITRITE NEGATIVE (NEGATIVE); URINE PROTEIN NEGATIVE (NEGATIVE); URINE UROBILINOGEN 0.2 mg/dL (0.2-1.0)
[2018-12-26 21:13] VITALS: BP 164/97; PULSE 74
--- NOTE | 2018-12-27 12:28 | EKG ---
Test Reason : Blood Pressure : / mmHG Vent. Rate : 071 BPM Atrial Rate : 071 BPM P-R Int : 142 ms QRS Dur : 098 ms QT Int : 414 ms P-R-T Axes : 065 002 051 degrees QTc Int : 449 ms NORMAL SINUS RHYTHM POSSIBLE LEFT ATRIAL ENLARGEMENT LEFT VENTRICULAR HYPERTROPHY NONSPECIFIC T WAVE ABNORMALITY ABNORMAL ECG WHEN COMPARED WITH ECG OF 26-MAY-2018 10:04, NO SIGNIFICANT CHANGE WAS FOUND Confirmed by EDDIE LORD MD ([id number]) on 12/27/2018 12:27:51 PM Referred By: Confirmed By:EDDIE LORD MD
== END 2018-12-26 21:13 | disposition home or self-care (01) ==
LOC: JERFT 14:40 → JER 14:40
DX: K61.1 Rectal abscess (principal); I10 Essential (primary) hypertension; E78.00 Pure hypercholesterolemia, unspecified; E11.9 Type 2 diabetes mellitus without complications; Z79.84 Long term (current) use of oral hypoglycemic drugs
CPT/HCPCS: 36415; 72193-TC; 80053; 81003; 85025; 85610; 86850; 86900; 86901; 93005; 93010; 99282-25

== ENCOUNTER 2019-06-02 22:05 | Inpatient (IN) | payer OTHER ==
[2019-06-02 22:17] VITALS: BMI 28.4
[2019-06-02] MEDS ORDERED: NITROGLYCERIN 2% OINTMENT - 1GM PACKET TD ONE ×2 (22:45→23:00)
[2019-06-02 23:11] LABS: BASO % 1.2 % (0-2.0); EOS % 6.6 % (0-4.5); HEMATOCRIT 42.9 % (35.4-49); HEMOGLOBIN 13.8 GM/dL (11.7-16.9); LYMPH % 52.6 % (8-40); MCHC 32.1 g/dl (32.0-35.9); MEAN CELL VOLUME 90.2 fl (80-96); MEAN PLT VOLUME 9.7 fl (7.5-11.1); MONO % 7.1 % (3.8-10.2); NEUT % 32.5 % (42.8-82.8); PLATELET COUNT 272 K/MM3 (134-434); RBC 4.75 M/mm3 (4.00-5.60); RDW 13.2 % (11.9-15.9); WHITE BLOOD COUNT 5.4 K/mm3 (4.0-10.0)
--- NOTE | 2019-06-02 23:11 | PDOC ---
Documentation entered by Davie Clemente SCRIBE, acting as scribe for Joyce Morelos DO. Joyce Morelos DO: This documentation has been prepared by the Bryn alcala Daniel, SCRIBE, under my direction and personally reviewed by me in its entirety. I confirm that the documentation accurately reflects all work, treatment, procedures, and medical decision making performed by me. History of Present Illness - General Chief Complaint: Shortness of Breath Stated Complaint: SOB Time Seen by Provider: 06/02/19 22:30 History Source: Patient Exam Limitations: No Limitations - History of Present Illness Initial Comments: 06/02/19 22:47 The patient is a 69 year old male with a past medical history of HTN, HLD, and diabetes here today for evaluation of shortness of breath. The patient reports that he has had 4 days of shortness of breath which became worse last night. He also endorses a mild cough and dyspnea on exertion. Patient denies headache, lightheadedness. Denies fever, chills. Denies chest pain. Denies nausea, vomiting, diarrhea, abdominal pain. Allergies: NKA Past History - Past Medical History Allergies/Adverse Reactions: Allergies Allergy/AdvReac Type Severity Reaction Status Date / Time No Known Allergies Allergy Verified 06/02/19 22:17 Home Medications: Ambulatory Orders Atorvastatin Ca [Lipitor] 40 mg PO HS 10/28/17 Glipizide [Glipizide ER] 2.5 mg PO DAILY 10/28/17 metFORMIN HCL [Metformin ER Osmotic] 1,000 mg PO BID 10/28/17 Amlodipine Besylate 10 mg PO DAILY #30 tablet 07/01/18 Losartan Potassium 100 mg PO DAILY #30 tablet 07/01/18 COPD: No Diabetes: Yes HTN: Yes Hypercholesterolemia: Yes - Immunization History Immunization Up to Date: Yes - Psycho Social/Smoking Cessation Hx Smoking History: Never smoked Have you smoked in the past 12 months: Yes Number of Cigarettes Smoked Daily: 1 If you are a former smoker, when did you quit?: 1yr ago Hx Alcohol Use: No Drug/Substance Use Hx: Yes (marijuana) Substance Use Type: None Hx Substance Use Treatment: No Review of Systems - Review of Systems Able to Perform ROS?: Yes Comments:: 06/02/19 22:47 GENERAL/CONSTITUTIONAL: No fever or chills. No weakness. HEAD, EYES, EARS, NOSE AND THROAT: No change in vision. No ear pain or discharge. No sore throat. GASTROINTESTINAL: No nausea, vomiting, diarrhea or constipation. GENITOURINARY: No dysuria, frequency, or change in urination. CARDIOVASCULAR: +shortness of breath. +dyspnea on exertion. +mild cough. No chest pain. RESPIRATORY: No cough, wheezing, or hemoptysis. MUSCULOSKELETAL: No joint or muscle swelling or pain. No neck or back pain. SKIN: No rash NEUROLOGIC: No headache, vertigo, loss of consciousness, or change in strength/ sensation. ENDOCRINE: No increased thirst. No abnormal weight change. HEMATOLOGIC/LYMPHATIC: No anemia, easy bleeding, or history of blood clots. ALLERGIC/IMMUNOLOGIC: No hives or skin allergy. *Physical Exam - Vital Signs Last Vital Signs Temp Pulse Resp BP Pulse Ox 97.5 F L 87 20 200/118 H 95 06/02/19 22:15 06/02/19 22:15 06/02/19 22:15 06/02/19 22:15 06/02/19 22:15 - Physical Exam Comments: 06/02/19 22:47 Constitutional: Awake, alert, oriented. No acute distress. Head: Normocephalic. Atraumatic Eyes: PERRL. EOMI. Conjunctivae are not pale. ENT: Mucous membranes are moist and intact. Posterior pharynx without exudates or erythema. Uvula midline. Neck: Supple. Full ROM. No lymphadenopathy. Cardiovascular: Regular rate. Regular rhythm. S1, S2 regular. Distal pulses are 2+ and symmetric. Pulmonary/Chest: +rales. No evidence of respiratory distress. Clear to auscultation bilaterally No wheezing or rhonchi. Abdominal: Soft and non-distended. There is no tenderness. No rebound, guarding or rigidity. No organomegaly. No palpable masses. Good bowel sounds. Back: No CVA tenderness. Musculoskeletal: +trace edema in ankles bilaterally. No cyanosis. No clubbing. Full range of motion in all extremities. No calf tenderness. Radial/ pedal pulses are intact and 2+ bilaterally Skin: Skin is warm and dry. No petechiae. No purpura. Neurological: Alert and oriented to person, place, and time. Cranial nerves II -XII are grossly intact. Normal speech. Strength is grossly symmetric. No sensory deficits. Psychiatric: Good eye contact. Normal interaction, affect and behavior. Heart Score/ECG Review - ECG Intrepretation Comment:: 06/02/19 23:07 sinus at 76, nl axis, nl interval, lvh, no acute st/t wave findings, abnl ekg ED Treatment Course - LABORATORY CBC & Chemistry Diagram: 06/02/19 23:00 06/02/19 23:00 - RADIOLOGY Radiology Studies Ordered: Category Date Time Status CHEST X-RAY PORTABLE* [RAD] Stat Radiology 06/02/19 22:45 Ordered - Medications Given in the ED: ED Medications Discontinued Medications Generic Name Dose Route Start Last Admin Trade Name Freq PRN Reason Stop Dose Admin Nitroglycerin 1 inch 06/02/19 22:45 06/02/19 23:03 Nitro-Bid 2% Paste - TD 06/02/19 22:46 1 inch ONCE ONE Administration Medical Decision Making - Critical Care Time Total Critical Care Time (minutes): 35 Critical Care Statement: The care of this patient involved high complexity decision making to prevent further life threatening deterioration of the patient 's condition and/or to evaluate & treat vital organ system(s) failure or risk of failure. 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 hanna microblog sent to [facility] for admission for nstemi, hypertensive crisis, chf call placed to [facility] 06/03/19 00:[address] Carl from [facility], will see pt in consult in the AM, agrees with asa, lasix, nitro 06/03/19 01:13 [facility] Discharge - Discharge Information Problems reviewed: Yes Clinical Impression/Diagnosis: Elevated troponin, Uncontrolled hypertension, Pulmonary edema Condition: Guarded - Admission Yes - Follow up/Referral Referrals: Kamila Hanna [Primary Care Provider] - - Patient Discharge Instructions - Post Discharge Activity
[2019-06-02 23:21] LABS: INR 0.93 (0.83-1.09)
[2019-06-02 23:23] LABS: ACTIVATED PTT 26.9 SECONDS (25.2-36.5)
[2019-06-02 23:38] LABS: BILIRUBIN,TOTAL 0.8 mg/dL (0.2-1); BLOOD UREA NITROGEN 14.4 mg/dL (7-18); CALCIUM 9.6 mg/dL (8.5-10.1); CREATININE 1.2 mg/dL (0.55-1.3); N-TERMINAL BNP 840.6 pg/ml (5-125); POTASSIUM 3.9 mmol/L (3.5-5.1); TOT PROT 8.4 g/dl (6.4-8.2)
[2019-06-03] MEDS ORDERED: FUROSEMIDE 40 MG/4 ML INJECTABLE VIAL IVPUSH ONE ×2 (00:12→03:35)
[2019-06-03] MEDS ORDERED: ASPIRIN 81 MG CHEWABLE TABLETS PO ONE (00:12)
[2019-06-03] MEDS ORDERED: FUROSEMIDE 40 MG/4 ML INJECTABLE VIAL ONE (00:36)
[2019-06-03] MEDS ORDERED: ASPIRIN 81 MG CHEWABLE TABLETS ONE (00:36)
--- NOTE | 2019-06-03 02:23 | PN ---
Teaching Attending Note Name of Resident: Na Hobbs ATTENDING PHYSICIAN STATEMENT I saw and evaluated the patient. I reviewed the resident's note and discussed the case with the resident. I agree with the resident's findings and plan as documented. SUBJECTIVE: Patient is a 69 year old man with PMH of NIDDM, HTN, HLD, Perirectal abscess, Left facial epidermal inclusion cyst and Marijuana use who presents with shortness of breath. The patient reports that he has had 4 days of shortness of breath which became worse last night. He also has a mild cough and dyspnea on exertion. Patient denies headache, lightheadedness. Denies fever, chills. Denies chest pain. Denies nausea, vomiting, diarrhea, abdominal pain. FH of DM and HTN. OBJECTIVE: Alert Vital Signs Period Temp Pulse Resp BP Sys/Cooper Pulse Ox Last 24 Hr 97.5 F-98.5 F 60-87 17-20 167-200/83-118 95-99 HEENT: No Jaundice, eye redness or discharge, PERRLA, EOMI. Normocephalic, atraumatic. External ears are normal and hearing is grossly intact. No nasal discharge. Neck: Supple, nontender. No palpable adenopathy or thyromegaly. No JVD Chest: Good effort. Clear to auscultation and percussion. Heart: Regular. No S3 or rub; 3/6 KAYLAN Abdomen: Not distended, soft, nontender and no HSM. No rebound or guarding. Normal bowel sounds. Ext: Peripheral pulses intact. No leg edema. Skin: Warm and dry. No petechiae, rash or ecchymosis. Neuro: Alert. Oriented x3. CN 2-12 grossly intact. Sensation grossly intact in all four extremities and DTR are symmetric. Psych: Appropriate mood and affect. Good insight. Home Medications Medication Instructions Recorded Atorvastatin Ca [Lipitor] 40 mg PO HS 10/28/17 Glipizide [Glipizide ER] 2.5 mg PO DAILY 10/28/17 metFORMIN HCL [Metformin ER 1,000 mg PO BID 10/28/17 Osmotic] Amlodipine Besylate 10 mg PO DAILY #30 tablet 07/01/18 Losartan Potassium 100 mg PO DAILY #30 tablet 07/01/18 Abnormal Lab Results 06/02/19 06/02/19 23:00 23:00 Neutrophils % 32.5 L D Lymphocytes % 52.6 H D Eosinophils % 6.6 H D Random Glucose 142 H Creatine Kinase 316 H Troponin I 0.12 H B-Natriuretic Peptide 840.6 H Total Protein 8.4 H ASSESSMENT AND PLAN: 1. Hypertensive urgency/ACS - In the ER he got Nitroglycerin paste, IV lasix 40 mg and Aspirin 324 mg PO. BP down to 168/83 mmHg. EKG shows NSR, LVH, prolonged QTc, and nonspecific T wave abnormality. CXR shows cardiomegaly and pulmonary vascular congestion. Elevated troponin likely due to acute hypertensive cardiomyopathy. Will admit to telemetry to rule out ACS, get ECHO, restrict dietary salt intake, get fasting lipid profile, urinalysis and HbA1c. Cardiology consulted. Will restart his outpatient antihypertensive drugs and add lasix 40 mg po qd. Will decide on additional drugs after his ECHO. Counseled patient on the injurious effects of uncontrolled hypertension. Nonpharmacologic measures to control hypertension like weight loss, salt restriction and exercise discussed. Importance of adherence to treatment regimen and attainment of normotension emphasized. Will continue comprehensive care for all of patients comorbid conditions. 2. DM For now, we will hold the home diabetes drugs and implement sliding scale insulin regimen. Provide comprehensive diabetes care with patient teaching and counseling about the importance of adherence to prescribed diabetes regimen, euglycemia, eye care and foot care. 3. DVT prophylaxis - Lovenox 40 mg SQ q 24 hours. 4. Advance directives - Full code
[2019-06-03] MEDS ORDERED: ACETAMINOPHEN 325 MG TABLET (FP) PO PRN (03:23)
[2019-06-03] MEDS ORDERED: LOSARTAN POTASSIUM 50 MG TABLET (FP) PO ONE (03:34)
--- NOTE | 2019-06-03 04:44 | HP ---
CHIEF COMPLAINT: SOB and Chest pain PCP: Dr Moura HISTORY OF PRESENT ILLNESS: 69 y/o M with PMH of HTN, HLD, DM who came into the ED because of worsening shortness of breath. The SOB started 4 days ago but yesterday, pt noticed that he had difficultly breathing when lying flat and that he at one point woke up grasping for air and that that point decided to come to the emergency room. Pt further complains of shortness of breath after going up to flights of stairs recently however no changes were noted on ambulation on level ground. He also noted that he has been urinating more frequently in the last few days. Pt denies non compliance to his medications although he was unable to identify his medication regimen.Per Pt last medication administration was yesterday morning and his last PCP visit was a month ago with no change in his home medications. 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 While in the ED, about 1 an hour prior to our encounter, pt began to experience chest pain. The chest pain was dull, intermittent, non radiating with no associated symptoms of dizziness, N/V. 2/10 in severity. Pt last BGM was the day before and was in the 200s. Pt endorsed not regularly checking his blood glucose as he was relying on how he felt to know if it was high or low. Pt unaware of what his HbA1C number is. ER course was notable for: (1) CBC, BMP with hyperglycemia at 142, vitals signs notable for BP in the 200/ 118 mmHg on admission (2) BNP 840.6, trop positive 0.[address] changes[address] Cardio DR Elizalde consulted and agrees to see pt in am and to cont asa, lasix and nitro paste (3) CXR significant for congestion Recent Travel: none PAST MEDICAL HISTORY: as noted above PAST SURGICAL HISTORY: cystoscopy 5 years ago FAMILY HISTORY: mom with DM and HTN Social History: Smoking: marijuana Alcohol: social drinker Drugs: denies Allergies No Known Allergies Allergy (Verified 06/02/19 22:17) HOME MEDICATIONS: Home Medications Medication Instructions Recorded Atorvastatin Ca [Lipitor] 40 mg PO HS 10/28/17 Glipizide [Glipizide ER] 2.5 mg PO DAILY 10/28/17 metFORMIN HCL [Metformin ER 1,000 mg PO BID 10/28/17 Osmotic] Amlodipine Besylate 10 mg PO DAILY #30 tablet 07/01/18 Losartan Potassium 100 mg PO DAILY #30 tablet 07/01/18 REVIEW OF SYSTEMS CONSTITUTIONAL: Absent: fever, chills, diaphoresis, generalized weakness, malaise, loss of appetite, weight change HEENT: Absent: rhinorrhea, nasal congestion, throat pain, throat swelling, difficulty swallowing, mouth swelling, ear pain, eye pain, visual changes CARDIOVASCULAR: chest pain Absent: syncope, palpitations, irregular heart rate, lightheadedness, peripheral edema RESPIRATORY: shortness of breath, dyspnea with exertion, orthopnea Absent: cough, wheezing, stridor, hemoptysis GASTROINTESTINAL: Absent: abdominal pain, abdominal distension, nausea, vomiting, diarrhea, constipation, melena, hematochezia GENITOURINARY: Absent: dysuria, frequency, urgency, hesitancy, hematuria, flank pain, genital pain MUSCULOSKELETAL: Absent: myalgia, arthralgia, joint swelling, back pain, neck pain SKIN: Absent: rash, itching, pallor HEMATOLOGIC/IMMUNOLOGIC: Absent: easy bleeding, easy bruising, lymphadenopathy, frequent infections ENDOCRINE: Absent: unexplained weight gain, unexplained weight loss, heat intolerance, cold intolerance NEUROLOGIC: Absent: headache, focal weakness or paresthesias, dizziness, unsteady gait, seizure, mental status changes, bladder or bowel incontinence PSYCHIATRIC: Absent: anxiety, depression, suicidal or homicidal ideation, hallucinations. PHYSICAL EXAMINATION Vital Signs - 24 hr 06/02/19 06/02/19 06/02/19 22:15 23:05 23:07 Temperature 97.5 F L 98.5 F Pulse Rate 87 Pulse Rate [ 73 Apical] Respiratory 20 17 Rate Blood Pressure 200/118 H Blood Pressure 179/101 H [Left Arm] O2 Sat by Pulse 95 96 99 Oximetry (%) 06/03/19 06/03/19 06/03/19 01:29 01:56 03:23 Temperature 97.8 F 98.2 F Pulse Rate Pulse Rate [ 60 64 61 Apical] Respiratory 19 18 Rate Blood Pressure Blood Pressure 168/83 167/102 H 159/99 [Left Arm] O2 Sat by Pulse 95 96 99 Oximetry (%) GENERAL: Awake, alert, and fully oriented, in mild distress. HEAD: Normal with no signs of trauma. EYES: Pupils equal, round and reactive to light, extraocular movements intact, sclera anicteric, conjunctiva clear. No lid lag. EARS, NOSE, THROAT: oropharynx clear without exudates. Moist mucous membranes. NECK: Normal range of motion, supple without lymphadenopathy, JVD, or masses. LUNGS: Breath sounds equal, clear to auscultation bilaterally. No wheezes, and no crackles. No accessory muscle use. HEART: Regular rate and rhythm, normal S1 and S2 with 3/6 murmur in apical region and left sternal border ABDOMEN: Soft, nontender, not distended, normoactive bowel sounds, no guarding, no rebound, no masses. No hepatomegaly or splenomegaly. MUSCULOSKELETAL: Normal range of motion at all joints. No bony deformities or tenderness. No CVA tenderness. UPPER EXTREMITIES: 2+ pulses, warm, well-perfused. No cyanosis. No clubbing. No peripheral edema. LOWER EXTREMITIES: 2+ pulses, warm, well-perfused. No calf tenderness. No peripheral edema. NEUROLOGICAL: Cranial nerves II-XII intact. Normal speech. Normal gait. gross motor and sensation intact PSYCHIATRIC: Cooperative. Good eye contact. Appropriate mood and affect. SKIN: Warm, dry, normal turgor, no rashes or lesions noted, normal capillary refill. Laboratory Results - last 24 hr 06/02/19 06/02/19 06/02/19 23:00 23:00 23:00 WBC 5.4 RBC 4.75 Hgb 13.8 Hct 42.9 MCV 90.2 MCH 29.0 MCHC 32.1 RDW 13.2 Plt Count 272 MPV 9.7 D Absolute Neuts (auto) 1.8 Neutrophils % 32.5 L D Lymphocytes % 52.6 H D Monocytes % 7.1 Eosinophils % 6.6 H D Basophils % 1.2 Nucleated RBC % 0 PT with INR INR PTT (Actin FS) Sodium 141 Potassium 3.9 Chloride 106 Carbon Dioxide 28 Anion Gap 8 BUN 14.4 Creatinine 1.2 Est GFR (CKD-EPI)AfAm 71.08 Est GFR (CKD-EPI)NonAf 61.33 Random Glucose 142 H Calcium 9.6 Magnesium 2.0 Total Bilirubin 0.8 AST 21 ALT 25 Alkaline Phosphatase 87 Creatine Kinase Cancelled 316 H Creatine Kinase Index 0.8 CK-MB (CK-2) 2.6 Troponin I Cancelled 0.12 H B-Natriuretic Peptide Cancelled 840.6 H Total Protein 8.4 H Albumin 4.0 10/23/19 10/24/19 23:00 01:51 WBC RBC Hgb Hct MCV MCH MCHC RDW Plt Count MPV Absolute Neuts (auto) Neutrophils % Lymphocytes % Monocytes % Eosinophils % Basophils % Nucleated RBC % PT with INR 11.00 INR 0.93 PTT (Actin FS) 26.9 Sodium Potassium Chloride Carbon Dioxide Anion Gap BUN Creatinine Est GFR (CKD-EPI)AfAm Est GFR (CKD-EPI)NonAf Random Glucose Calcium Magnesium Total Bilirubin AST ALT Alkaline Phosphatase Creatine Kinase 361 H Creatine Kinase Index 0.6 CK-MB (CK-2) 2.4 Troponin I 0.15 H B-Natriuretic Peptide Total Protein Albumin ASSESSMENT/PLAN: 69 y/o M with PMH of HTN, HLD, DM who came into the ED because of worsening shortness of breath and chest pain. Admitted for hypertensive urgency /ADHF SOB 2/2 Hypertensive urgency /ADHF with MR and pulmonary edema BP 200/118, 179/101, 168/83 mmHg losartan 100mg given once resume losartan 100mg daily and norvasc 10mg Daily. Consider adding HTZD 12.5 once fluid load decreases Echo for cardiac function assessment IV lasix 40mg also given once. reassess need for maintenance cardiology consult- Dr Malhotra who will see pt in the Am Elevated troponin I and chest pain: demand ? ASA 324 and Nitropaste given in ED initial troponin 0.12, repeat 0.15. continue trend initial EKG was NS with no specific ST changes. pending repeat with new trop Per Cardio, continue ASA and nitropaste lipid panel Hyperglycemia BG of 142 last BGM was day prior to admission admits to not being consistent with BGM HbA1C ISS needs diabetic education EYE nd foot doctor as outpatient FEN cardiac diet no standing fluid DVT lovenox 40 Visit type - Emergency Visit Emergency Visit: Yes ED Registration Date: 06/03/19 Care time: The patient presented to the Emergency Department on the above date and was hospitalized for further evaluation of their emergent condition. - New Patient This patient is new to me today: Yes Date on this admission: 06/03/19 - Critical Care Critical Care patient: No ATTENDING PHYSICIAN STATEMENT I saw and evaluated the patient. I reviewed the resident's note and discussed the case with the resident. I agree with the resident's findings and plan as documented. SUBJECTIVE: OBJECTIVE: ASSESSMENT AND PLAN:
[2019-06-03 06:14] LABS: BASO % 0.6 % (0-2.0); EOS % 3.7 % (0-4.5); HEMATOCRIT 37.3 % (35.4-49); HEMOGLOBIN 12.4 GM/dL (11.7-16.9); LYMPH % 30.6 % (8-40); MCH 29.7 pg (25.7-33.7); MCHC 33.3 g/dl (32.0-35.9); MEAN CELL VOLUME 89.1 fl (80-96); MEAN PLT VOLUME 9.6 fl (7.5-11.1); MONO % 6.9 % (3.8-10.2); NEUT % 58.2 % (42.8-82.8); PLATELET COUNT 242 K/MM3 (134-434); RBC 4.19 M/mm3 (4.00-5.60); RDW 13.2 % (11.9-15.9); WHITE BLOOD COUNT 4.3 K/mm3 (4.0-10.0)
[2019-06-03] MEDS: INSULIN SLIDING SCALE (NOVOLOG) 1 VIAL SQ SCH ×2 (06:21→11:56)
[2019-06-03 06:54] LABS: ALBUMIN 3.6 g/dl (3.4-5.0); BLOOD UREA NITROGEN 13.2 mg/dL (7-18); CALCIUM 8.9 mg/dL (8.5-10.1); CREATININE 1.1 mg/dL (0.55-1.3); MAGNESIUM 1.8 mg/dL (1.8-2.4); PHOSPHOROUS 3.7 mg/dL (2.5-4.9); POTASSIUM 3.5 mmol/L (3.5-5.1); TOT PROT 7.3 g/dl (6.4-8.2)
[2019-06-03] MEDS ORDERED: PT OWN MED DRAWER 7, Y5N ONE (09:00)
--- NOTE | 2019-06-03 09:01 | PN ---
Teaching Attending Note Name of Resident: Casesarah Mary Kate ATTENDING PHYSICIAN STATEMENT I reviewed the resident's note and discussed the case with the resident. I agree with the resident's findings and plan as documented. SUBJECTIVE: OBJECTIVE: Vital Signs Temperature 98.5 F 06/03/19 06:15 Pulse Rate 61 06/03/19 07:50 Respiratory Rate 20 06/03/19 07:50 Blood Pressure 174/94 H 06/03/19 07:50 O2 Sat by Pulse Oximetry (%) 99 06/03/19 07:50 CBCD WBC 4.3 K/mm3 (4.0-10.0) 06/03/19 05:28 RBC 4.19 M/mm3 (4.00-5.60) 06/03/19 05:28 Hgb 12.4 GM/dL (11.7-16.9) 06/03/19 05:28 Hct 37.3 % (35.4-49) 06/03/19 05:28 MCV 89.1 fl (80-96) 06/03/19 05:28 MCHC 33.3 g/dl (32.0-35.9) 06/03/19 05:28 RDW 13.2 % (11.9-15.9) 06/03/19 05:28 Plt Count 242 K/MM3 (134-434) 06/03/19 05:28 MPV 9.6 fl (7.5-11.1) 06/03/19 05:28 CMP Sodium 141 mmol/L (136-145) 06/03/19 05:28 Potassium 3.5 mmol/L (3.5-5.1) 06/03/19 05:28 Chloride 104 mmol/L (98-107) 06/03/19 05:28 Carbon Dioxide 28 mmol/L (21-32) 06/03/19 05:28 Anion Gap 9 MMOL/L (8-16) 06/03/19 05:28 BUN 13.2 mg/dL (7-18) 06/03/19 05:28 Creatinine 1.1 mg/dL (0.55-1.3) 06/03/19 05:28 Random Glucose 186 mg/dL (74-106) H 06/03/19 05:28 Calcium 8.9 mg/dL (8.5-10.1) 06/03/19 05:28 Total Bilirubin 1.0 mg/dL (0.2-1) 06/03/19 05:28 AST 18 U/L (15-37) 06/03/19 05:28 ALT 23 U/L (13-61) 06/03/19 05:28 Alkaline Phosphatase 75 U/L (45-117) 06/03/19 05:28 Total Protein 7.3 g/dl (6.4-8.2) 06/03/19 05:28 Albumin 3.6 g/dl (3.4-5.0) 06/03/19 05:28 CARDIAC ENZYMES Creatine Kinase 361 U/L (26-308) H 06/03/19 01:51 Troponin I 0.11 ng/ml (0.00-0.05) H 06/03/19 05:28 Current Medications Generic Name Dose Route Start Last Admin Trade Name Freq PRN Reason Stop Dose Admin Acetaminophen 650 mg 06/03/19 03:23 Tylenol - PO Q6H PRN PAIN LEVEL 4 - 6 Amlodipine Besylate 10 mg 06/03/19 10:00 Norvasc - PO DAILY [facility] Aspirin 81 mg 06/03/19 10:00 Ecotrin - PO DAILY [facility] Atorvastatin Calcium 40 mg 06/03/19 22:00 Lipitor - PO HS [facility] Enoxaparin Sodium 40 mg 06/03/19 10:00 Lovenox - SQ DAILY [facility] Insulin Aspart 1 vial 06/03/19 07:00 06/03/19 06:21 Novolog Vial Sliding Scale - SQ 2 unit ACHS [facility] Administration Protocol Losartan Potassium 100 mg 06/04/19 10:00 Cozaar - PO DAILY [facility] Home Medications Medication Instructions Recorded Atorvastatin Ca [Lipitor] 40 mg PO HS 10/28/17 Glipizide [Glipizide ER] 2.5 mg PO DAILY 10/28/17 metFORMIN HCL [Metformin ER 1,000 mg PO BID 10/28/17 Osmotic] Amlodipine Besylate 10 mg PO DAILY #30 tablet 07/01/18 Losartan Potassium 100 mg PO DAILY #30 tablet 07/01/18 Selected Entries 06/02/19 06/02/19 06/03/19 22:15 23:05 01:29 Blood Pressure 200/118 H Blood Pressure 179/101 H 168/83 [Left Arm] 06/03/19 06/03/19 06/03/19 01:56 03:23 06:15 Blood Pressure Blood Pressure 167/102 H 159/99 159/93 [Left Arm] 06/03/19 07:50 Blood Pressure Blood Pressure 174/94 H [Left Arm] PE: per resident's note CXR: Normal, no infiltrate ASSESSMENT AND PLAN: Patient is a 69yo male with PMHx of HTN, HLD, DM who came to the ED because of worsening shortness of breath started 4 days ago. #Hypertensive Urgency: losartan/norvasc/added coreg 3.125mg bid, echo ordered, ekg, cardio consult . # Acute chest pain r/o ACS: elevated trops, repeat EKG/ECHO, Ec asa, lipitor , cardio on the case. 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
[2019-06-03] MEDS ORDERED: ENOXAPARIN NA (PORCINE) 40 MG/0.4 ML DISP.SYRIN SQ SCH (10:00)
[2019-06-03] MEDS ORDERED: ASPIRIN COATED 81 MG TABLET.EC PO SCH (10:00)
[2019-06-03] MEDS ORDERED: amLODIPine BESYLATE 10 MG TABLET (FP) PO SCH (10:00)
[2019-06-03] MEDS ORDERED: CARVEDILOL 3.125 MG TABLET (FP) PO SCH (10:00)
[2019-06-03] MEDS ORDERED: HEPARIN NA (PORCINE) 5,000 UNITS/ML 1ML VIAL SQ SCH (10:00)
[2019-06-03] MEDS ORDERED: PATIENT'S OWN MEDICATION (NON-FORMULARY) (Losartan Potassium [Losartan Potassium] 100 MG) PO SCH (10:00)
--- NOTE | 2019-06-03 11:09 | CON.CARD ---
Consult Consult Specialty:: cardiology Referred by:: michelle leblanc Reason for Consultation:: chest pain - History of Present Illness Chief Complaint: chest pain History of Present Illness: 69 year old male with a pmhx of htn, hld, and dm presents with chest pain and sob. Mr. Trivedi has noticed last couple weeks sob with exertion. Was very active but now has to stop when walking stairs due to suffocation. Resolves with rest. Some mild chest tightness with walking. Last night in bed developed acute severe central chest pain/pressure on his chest with severe sob which did not improve till treated in ER. EKG initially sinus rhythm with no acute st changes and this morning with some new anterior subtle changes. - History Source History Provided By: Patient, Medical Record - Past Medical History Cardio/Vascular: Yes: HTN, Murmur Endocrine: Yes: Diabetes Mellitus - Alcohol/Substance Use Hx Alcohol Use: No - Smoking History Smoking history: Never smoked Have you smoked in the past 12 months: Yes Aproximately how many cigarettes per day: 1 If you are a former smoker, when did you quit?: 1yr ago Home Medications - Allergies Allergies/Adverse Reactions: Allergies Allergy/AdvReac Type Severity Reaction Status Date / Time No Known Allergies Allergy Verified 06/02/19 22:17 - Home Medications Home Medications: Ambulatory Orders Atorvastatin Ca [Lipitor] 40 mg PO HS 10/28/17 Glipizide [Glipizide ER] 2.5 mg PO DAILY 10/28/17 metFORMIN HCL [Metformin ER Osmotic] 1,000 mg PO BID 10/28/17 Amlodipine Besylate 10 mg PO DAILY #30 tablet 07/01/18 Losartan Potassium 100 mg PO DAILY #30 tablet 07/01/18 Vital Signs: Vital Signs Temperature 98.5 F 06/03/19 06:15 Pulse Rate 61 06/03/19 07:50 Respiratory Rate 20 06/03/19 07:50 Blood Pressure 174/94 H 06/03/19 07:50 O2 Sat by Pulse Oximetry (%) 99 06/03/19 07:50 Neck: Yes: Supple Respiratory: Yes: CTA Bilaterally Gastrointestinal: Yes: Soft Cardiovascular: Yes: Regular Rate and Rhythm JVD: No Carotid Bruit: No PMI: Non-Displaced Heart Sounds: Yes: S1, S2 Murmur: Yes: Systolic Murmur (+4/6 HSM apex radiating towards sternum) Edema: No - Other Data Labs, Other Data: CBC, BMP 06/03/19 05:28 06/03/19 05:28 INR, PTT INR 0.93 (0.83-1.09) 06/02/19 23:00 Troponin, BNP 06/02/19 06/02/19 06/03/19 23:00 23:00 01:51 Troponin I Cancelled 0.12 H 0.15 H B-Natriuretic Peptide Cancelled 840.6 H 06/03/19 05:28 Troponin I 0.11 H B-Natriuretic Peptide Troponin, BNP 06/02/19 06/02/19 06/03/19 23:00 23:00 01:51 Troponin I Cancelled 0.12 H 0.15 H B-Natriuretic Peptide Cancelled 840.6 H 06/03/19 05:28 Troponin I 0.11 H B-Natriuretic Peptide Imaging - Results Chest X-ray: Report Reviewed EKG: Image Reviewed Assessment/Plan 69 year old male with a pmhx of htn, hld, and dm presents with chest pain and sob. Mr. Trivedi has noticed last couple weeks sob with exertion. Was very active but now has to stop when walking stairs due to suffocation. Resolves with rest. Some mild chest tightness with walking. Last night in bed developed acute severe central chest pain/pressure on his chest with severe sob which did not improve till treated in ER. EKG initially sinus rhythm with no acute st changes and this morning with some new anterior subtle changes. Trop 0.12 CK 360 CXr some congestion BNP 800s 1) Chest pain and sob Symptoms may all be due to htn uncontrolled but given progressive symptoms with some subtle ekg anterior changes and risk factors and family history (mother had cabg in 60s) will plan for transfer to [facility] and cath tomorrow Significant MR murmur on exam plan for echo today BP control restart carvedilol, losartan, and amlodipine. Add hydralazine 25mg q8 and plan to uptitrate. If LVEF decreased will adjust plan.
[2019-06-03] MEDS ORDERED: hydrALAZINE HCL 20 MG/ML VIAL IVPUSH PRN (11:34)
[2019-06-03] MEDS ORDERED: hydrALAZINE HCL 20 MG/ML VIAL IVPB PRN (12:07)
--- NOTE | 2019-06-03 12:42 | ECHO ---
Name: KIMBER JORGE Exam:Adult Echocardiogram Study Date: 06/03/2019 11:02 AM Age: 69 yrs Reason For Study: CARDIAC ASSESXSMENT AND MR ON PHYSICAL Height: 68 in Weight: 187 lb BSA: 2.0 m2 MMode/2D Measurements & Calculations IVSd: 0.93 cm Ao root diam: 3.4 cm LVIDd: 6.5 cm LA dimension: 4.5 cm LVIDs: 5.3 cm LVPWd: 0.92 cm EDV(Teich): 214.5 ml LVOT diam: 2.3 cm ESV(Teich): 137.6 ml Doppler Measurements & Calculations MV E max yuriy: 66.1 cm/sec MV P1/2t max yuriy: 148.4 cm/sec MV A max yuriy: 64.2 cm/sec MV P1/2t: 110.8 msec MV E/A: 1.0 MV dec time: 0.36 sec MVA(P1/2t): 2.0 cm2 MV dec slope: 392.3 cm/sec2 Ao V2 max: 134.8 cm/sec LV V1 max P.5 mmHg Ao max P.3 mmHg LV V1 mean P.2 mmHg Ao V2 mean: 109.2 cm/sec LV V1 max: 79.2 cm/sec Ao mean P.0 mmHg LV V1 mean: 51.1 cm/sec Ao V2 VTI: 25.8 cm LV V1 VTI: 13.5 cm MAHESH(I,D): 2.2 cm2 MAHESH(V,D): 2.5 cm2 MR max yuriy: 565.4 cm/sec SV(LVOT): 57.1 ml MR max P.9 mmHg TR max yuriy: 214.8 cm/sec PA V2 max: 113.8 cm/sec TR max P.8 mmHg PA max P.2 mmHg PI end-d yuriy: 67.3 cm/sec Med Peak E' Yuriy: 8.4 cm/sec Med E/e': 7.9 Lat Peak E' Yuriy: 7.7 cm/sec Lat E/e': 8.6 Procedure A complete two-dimensional transthoracic echocardiogram was performed (2D, M-mode, Doppler and color flow Doppler). Left Ventricle The left ventricle is moderately dilated. Left ventricular systolic function is mildly reduced. Eject ion Fraction = 45-50%. Hypokinesis of inferolateral, lateral, and anterolateral elizondo. Right Ventricle The right ventricle is normal in size and function. Atria The left atrium is moderately dilated. Right atrial size is normal. Mitral Valve There is moderate to severe mitral regurgitation. Tricuspid Valve There is trace tricuspid regurgitation. Right ventricular systolic pressure is normal. Aortic Valve No hemodynamically significant valvular aortic stenosis. No aortic regurgitation is present. Pulmonic Valve Trace pulmonic valvular regurgitation. Great Vessels The aortic root is normal size. Pericardium/Pleura There is no pericardial effusion. Interpretation Summary The left ventricle is moderately dilated. Left ventricular systolic function is mildly reduced. Hypokinesis of inferolateral, lateral, and anterolateral elizondo. The right ventricle is normal in size and function. The left atrium is moderately dilated. There is moderate to severe mitral regurgitation. There is trace tricuspid regurgitation. Trace pulmonic valvular regurgitation. MD Kenan Schuster 06/03/2019 12:41 PM
--- NOTE | 2019-06-03 13:34 | EKG ---
Test Reason : Blood Pressure : / mmHG Vent. Rate : 076 BPM Atrial Rate : 076 BPM P-R Int : 144 ms QRS Dur : 104 ms QT Int : 424 ms P-R-T Axes : 057 004 056 degrees QTc Int : 477 ms NORMAL SINUS RHYTHM POSSIBLE LEFT ATRIAL ENLARGEMENT LEFT VENTRICULAR HYPERTROPHY NONSPECIFIC T WAVE ABNORMALITY PROLONGED QT ABNORMAL ECG WHEN COMPARED WITH ECG OF 26-DEC-2018 16:36, NO SIGNIFICANT CHANGE WAS FOUND Confirmed by EVETTE ANTONIO, SKYLA ([id number]) on 06/03/2019 1:34:09 PM Referred By: Confirmed By:SKYLA ALAS MD
--- NOTE | 2019-06-03 13:34 | EKG ---
Test Reason : Blood Pressure : / mmHG Vent. Rate : 065 BPM Atrial Rate : 065 BPM P-R Int : 144 ms QRS Dur : 106 ms QT Int : 482 ms P-R-T Axes : 063 -08 033 degrees QTc Int : 501 ms NORMAL SINUS RHYTHM POSSIBLE LEFT ATRIAL ENLARGEMENT LEFT VENTRICULAR HYPERTROPHY T WAVE ABNORMALITY, CONSIDER ANTERIOR ISCHEMIA PROLONGED QT ABNORMAL ECG WHEN COMPARED WITH ECG OF 02-JUN-2019 22:49, NONSPECIFIC T WAVE ABNORMALITY NOW EVIDENT IN INFERIOR LEADS Confirmed by SKYLA ALAS MD ([id number]) on 06/03/2019 1:33:40 PM Referred By: Confirmed By:SKYLA ALAS MD
--- NOTE | 2019-06-03 16:35 | PN ---
Physical Exam: SUBJECTIVE: Patient seen and examined in the morning. No acute events overnight. Has no complaints of chest pain, abdominal pain, cough, headache, weakness. OBJECTIVE: Vital Signs Period Temp Pulse Resp BP Sys/Cooper Pulse Ox Last 24 Hr 97.5 F-98.5 F 60-87 17-20 159-200/83-118 95-99 GENERAL: The patient is awake, alert, and fully oriented, in mild distress. HEAD: Normal with no signs of trauma. EYES: PERRL, extraocular movements intact, sclera anicteric, conjunctiva clear. ENT: Ears normal, nares patent, oropharynx clear without exudates, moist mucous membranes. NECK: Trachea midline, full range of motion, supple. LUNGS: Breath sounds equal, clear to auscultation bilaterally, no wheezes, no crackles, no accessory muscle use. HEART:S1 and S2 heart. 3/6 murmur heard in apical region and left sternal border. ABDOMEN: Soft, nontender, nondistended, normoactive bowel sounds, no guarding, no rebound. EXTREMITIES: 2+ pulses, warm, well-perfused, no edema. NEUROLOGICAL: Cranial nerves II through XII grossly intact. Laboratory Results - last 24 hr CBC, BMP 06/03/19 05:28 06/03/19 05:28 Active Medications Generic Name Dose Route Start Last Admin Trade Name Freq PRN Reason Stop Dose Admin Acetaminophen 650 mg 06/03/19 03:23 Tylenol - PO Q6H PRN PAIN LEVEL 4 - 6 Amlodipine Besylate 10 mg 06/03/19 10:00 06/03/19 09:07 Norvasc - PO 10 mg DAILY DOREEN Administration Aspirin 81 mg 06/03/19 10:06/03/19 09:07 Ecotrin - PO 81 mg DAILY DOREEN Administration Atorvastatin Calcium 40 mg 06/03/19 22:00 Lipitor - PO HS DOREEN Carvedilol 3.125 mg 06/03/19 10:00 06/03/19 10:10 Coreg - PO 3.125 mg BID DOREEN Administration Enoxaparin Sodium 40 mg 06/03/19 10:00 06/03/19 09:07 Lovenox - SQ 40 mg DAILY DOREEN Administration Hydralazine HCl 10 mg 06/03/19 12:07 Apresoline Injection - IVPB Q8H PRN HYPERTENSION Insulin Aspart 1 vial 06/03/19 07:00 06/03/19 11:56 Novolog Vial Sliding Scale - SQ 4 unit ACHS DOREEN Administration Protocol Losartan Potassium 100 mg 06/04/19 10:00 Cozaar - PO DAILY DOREEN ASSESSMENT/PLAN: 69 M with PMH of HTN, HLD, DM who came into the ED because of worsening shortness of breath and chest pain and was found to have BP of 200/118. Patient transferred to [facility] by cardiology for Cath Visit type - Emergency Visit Emergency Visit: Yes ED Registration Date: 06/03/19 Care time: The patient presented to the Emergency Department on the above date and was hospitalized for further evaluation of their emergent condition. - New Patient This patient is new to me today: Yes Date on this admission: 06/03/19 - Critical Care Critical Care patient: No ATTENDING PHYSICIAN STATEMENT I saw and evaluated the patient. I reviewed the resident's note and discussed the case with the resident. I agree with the resident's findings and plan as documented. SUBJECTIVE: OBJECTIVE: ASSESSMENT AND PLAN:
--- NOTE | 2019-06-03 17:00 | DS ---
Physical Exam: SUBJECTIVE: Patient seen and examined in the morning. No acute events overnight. Has no complaints of chest pain, abdominal pain, cough, headache, weakness. OBJECTIVE: Vital Signs Period Temp Pulse Resp BP Sys/Cooper Pulse Ox Last 24 Hr 97.5 F-98.5 F 60-87 17-20 159-200/83-118 95-99 PHYSICAL EXAM GENERAL: The patient is awake, alert, and fully oriented, in mild distress. HEAD: Normal with no signs of trauma. EYES: PERRL, extraocular movements intact, sclera anicteric, conjunctiva clear. ENT: Ears normal, nares patent, oropharynx clear without exudates, moist mucous membranes. NECK: Trachea midline, full range of motion, supple. LUNGS: Breath sounds equal, clear to auscultation bilaterally, no wheezes, no crackles, no accessory muscle use. HEART:S1 and S2 heart. 3/6 murmur heard in apical region and left sternal border. ABDOMEN: Soft, nontender, nondistended, normoactive bowel sounds, no guarding, no rebound. EXTREMITIES: 2+ pulses, warm, well-perfused, no edema. NEUROLOGICAL: Cranial nerves II through XII grossly intact. LABS Laboratory Results - last 24 hr 06/02/19 06/02/19 06/02/19 23:00 23:00 23:00 WBC 5.4 RBC 4.75 Hgb 13.8 Hct 42.9 MCV 90.2 MCH 29.0 MCHC 32.1 RDW 13.2 Plt Count 272 MPV 9.7 D Absolute Neuts (auto) 1.8 Neutrophils % 32.5 L D Lymphocytes % 52.6 H D Monocytes % 7.1 Eosinophils % 6.6 H D Basophils % 1.2 Nucleated RBC % 0 PT with INR INR PTT (Actin FS) Sodium 141 Potassium 3.9 Chloride 106 Carbon Dioxide 28 Anion Gap 8 BUN 14.4 Creatinine 1.2 Est GFR (CKD-EPI)AfAm 71.08 Est GFR (CKD-EPI)NonAf 61.33 POC Glucometer Random Glucose 142 H Hemoglobin A1c % Calcium 9.6 Phosphorus Magnesium 2.0 Total Bilirubin 0.8 AST 21 ALT 25 Alkaline Phosphatase 87 Creatine Kinase Cancelled 316 H Creatine Kinase Index 0.8 CK-MB (CK-2) 2.6 Troponin I Cancelled 0.12 H B-Natriuretic Peptide Cancelled 840.6 H Total Protein 8.4 H Albumin 4.0 Triglycerides Cholesterol Total LDL Cholesterol HDL Cholesterol TSH 06/02/19 06/03/19 06/03/19 23:00 01:51 05:28 WBC 4.3 RBC 4.19 Hgb 12.4 Hct 37.3 MCV 89.1 MCH 29.7 MCHC 33.3 RDW 13.2 Plt Count 242 MPV 9.6 Absolute Neuts (auto) 2.5 Neutrophils % 58.2 D Lymphocytes % 30.6 D Monocytes % 6.9 Eosinophils % 3.7 Basophils % 0.6 Nucleated RBC % 0 PT with INR 11.00 INR 0.93 PTT (Actin FS) 26.9 Sodium Potassium Chloride Carbon Dioxide Anion Gap BUN Creatinine Est GFR (CKD-EPI)AfAm Est GFR (CKD-EPI)NonAf POC Glucometer Random Glucose Hemoglobin A1c % Calcium Phosphorus Magnesium Total Bilirubin AST ALT Alkaline Phosphatase Creatine Kinase 361 H Creatine Kinase Index 0.6 CK-MB (CK-2) 2.4 Troponin I 0.15 H B-Natriuretic Peptide Total Protein Albumin Triglycerides Cholesterol Total LDL Cholesterol HDL Cholesterol TSH 06/03/19 06/03/19 06/03/19 05:28 05:28 06:19 WBC RBC Hgb Hct MCV MCH MCHC RDW Plt Count MPV Absolute Neuts (auto) Neutrophils % Lymphocytes % Monocytes % Eosinophils % Basophils % Nucleated RBC % PT with INR INR PTT (Actin FS) Sodium 141 Potassium 3.5 Chloride 104 Carbon Dioxide 28 Anion Gap 9 BUN 13.2 Creatinine 1.1 Est GFR (CKD-EPI)AfAm 78.97 Est GFR (CKD-EPI)NonAf 68.13 POC Glucometer 182 Random Glucose 186 H Hemoglobin A1c % 7.4 H Calcium 8.9 Phosphorus 3.7 Magnesium 1.8 Total Bilirubin 1.0 AST 18 ALT 23 Alkaline Phosphatase 75 Creatine Kinase Creatine Kinase Index CK-MB (CK-2) Troponin I 0.11 H B-Natriuretic Peptide Total Protein 7.3 Albumin 3.6 Triglycerides 49 Cholesterol 198 Total LDL Cholesterol 107 H HDL Cholesterol 79 H TSH 3.93 H 06/03/19 06/03/19 10:50 11:23 WBC RBC Hgb Hct MCV MCH MCHC RDW Plt Count MPV Absolute Neuts (auto) Neutrophils % Lymphocytes % Monocytes % Eosinophils % Basophils % Nucleated RBC % PT with INR INR PTT (Actin FS) Sodium Potassium Chloride Carbon Dioxide Anion Gap BUN Creatinine Est GFR (CKD-EPI)AfAm Est GFR (CKD-EPI)NonAf POC Glucometer 219 Random Glucose Hemoglobin A1c % Calcium Phosphorus Magnesium Total Bilirubin AST ALT Alkaline Phosphatase Creatine Kinase Creatine Kinase Index CK-MB (CK-2) Troponin I 0.09 H B-Natriuretic Peptide Total Protein Albumin Triglycerides Cholesterol Total LDL Cholesterol HDL Cholesterol TSH HOSPITAL COURSE: Date of Admission:06/03/19 Date of Discharge: 06/03/19 69M with PMH of HTN, HLD, DM who presented because of worsening shortness of breath for the previous 4 days. Upon arriving to ED patient was shown to be hypertensive at 200/118. Patient was given nitropaste upon arrival. During his stay in the ED patient experienced chest pain, EKG showed no changes compared to previous EKGs. Troponins returned elevated at 0.12 initially, then 0.15, then dropped to 0.11. Patient's BNP was measured at 840.6. Cardiology was consulted and they recommended continuation of his home blood pressure medications. Repeat EKG showed nonspecific T wave changes in inferior leads. Hydralazine 12.5 mg was also added to his medications. Patient was then transferred by Cardiology to [facility]. Chest X-Ray: Cardiomegaly, no pleural effusions, no pneumothorax. Vascular congestive changes present. No evidence of atelectasis Echocardiogram: EF: 45-50%. LV moderately dilated. LV systolic function mildly reduced. Minutes to complete discharge: 35 Discharge Summary Problems reviewed: Yes Reason For Visit: UNCONTROLLED HYPERTENSION,PULMONARY EDEMA Condition: Guarded - Instructions Referrals: Kamila Moura [Primary Care Provider] - Disposition: HOME - Home Medications Comprehensive Discharge Medication List: Ambulatory Orders Atorvastatin Ca [Lipitor] 40 mg PO HS 10/28/17 Glipizide [Glipizide ER] 2.5 mg PO DAILY 10/28/17 metFORMIN HCL [Metformin ER Osmotic] 1,000 mg PO BID 10/28/17 Amlodipine Besylate 10 mg PO DAILY #30 tablet 07/01/18 Losartan Potassium 100 mg PO DAILY #30 tablet 07/01/18 Aspirin [Adult Aspirin Regimen] 81 mg DAILY 06/03/19 This patient is new to me today: Yes Date on this admission: 06/03/19 Emergency Visit: Yes ED Registration Date: 06/03/19 Care time: The patient presented to the Emergency Department on the above date and was hospitalized for further evaluation of their emergent condition. Critical Care patient: No - Discharge Referral [facility]erred to [facility] No ATTENDING PHYSICIAN STATEMENT I saw and evaluated the patient. I reviewed the resident's note and discussed the case with the resident. I agree with the resident's findings and plan as documented. SUBJECTIVE: OBJECTIVE: ASSESSMENT AND PLAN:
[2019-06-03 19:47] VITALS: TEMP 98.8
[2019-06-03 19:49] VITALS: BP 181/103; PULSE 67
[2019-06-03] MEDS ORDERED: ATORVASTATIN CA 40 MG TABLET (FP) PO SCH (22:00)
[2019-06-04] MEDS ORDERED: LOSARTAN POTASSIUM 50 MG TABLET (FP) PO SCH (10:00)
== END 2019-06-03 16:23 | disposition home or self-care (01) | DRG 305 ==
LOC: JER 22:05 → JERBED 06-03 00:18
PROVIDERS: ADMIT Internal Medicine; ATTEND Internal Medicine
DX: I16.0 Hypertensive urgency (principal); I43 Cardiomyopathy in diseases classified elsewhere; I24.8 Other forms of acute ischemic heart disease; J81.1 Chronic pulmonary edema; I10 Essential (primary) hypertension; E78.5 Hyperlipidemia, unspecified; I11.9 Hypertensive heart disease without heart failure; E11.65 Type 2 diabetes mellitus with hyperglycemia; I34.0 Nonrheumatic mitral (valve) insufficiency
CPT/HCPCS: 36415; 71045-TC-FY; 80053; 80061; 82550; 82553; 82962; 83036; 83721; 83735; 83880; 84100; 84443; 84484; 85025; 85610; 85730; 93005; 93010; 93306-TC; 99285-25

== ENCOUNTER 2020-11-23 04:32 | Day surgery (SDC) | payer OTHER ==
[2020-11-21 16:49] VITALS: BMI 26.6
[~2020-11-23 04:32] MED LIST changes: -CYCLOPENTOLATE HCL 1% OPHTH SOLN 2 ML BOTTLE OP SCH; -MOXIFLOXACIN HCL 0.5% OPHTHALMIC 3 ML BOTTLE OP SCH; -PHENYLEPHRINE 2.5% OPHTH SOLN 15 ML BOTTLE OP SCH; -TROPICAMIDE 1% OPHTH SOLN 15 ML BOTTLE OP SCH
[2020-11-23] MEDS ORDERED: CIPROFLOXACIN HCL 0.3% OPHTH 2.5ML BOTTLE ONE (07:12)
[2020-11-23] MEDS: PHENYLEPHRINE 2.5% OPHTH SOLN 15 ML BOTTLE OP SCH ×2 (07:15→07:29)
[2020-11-23] MEDS: CIPROFLOXACIN HCL 0.3% OPHTH 2.5ML BOTTLE OP SCH ×2 (07:15→07:29)
[2020-11-23] MEDS: DICLOFENAC SODIUM 0.1% OPHTHALMIC 2.5ML BOTTLE ONE ×2 (07:15→07:29)
[2020-11-23] MEDS: TROPICAMIDE 1% OPHTH SOLN 15 ML BOTTLE OP SCH ×2 (07:15→07:30)
[2020-11-23] MEDS ORDERED: ACETAMINOPHEN 325 MG TABLET (FP) PO PRN ×2 (07:22→10:51)
[2020-11-23] MEDS ORDERED: KETOROLAC TROMETHAMINE 0.5% EYE DROP 1 DROP DROPS OP SCH (07:30)
[2020-11-23] MEDS ORDERED: PHENYLEPHRINE/KETOROLAC 4 ML VIAL IO ONE ×2 (08:15→08:49)
[2020-11-23] MEDS ORDERED: PROPOFOL 20 ML ONE (08:23)
[2020-11-23] MEDS ORDERED: MIDAZOLAM HCL 2 MG/2 ML SINGLE DOSE VIAL ONE (08:23)
[2020-11-23] MEDS ORDERED: TETRACAINE 0.5% OPHTH SOLN 2 ML BOTTLE TP ONE (08:34)
[2020-11-23] MEDS ORDERED: POVIDONE-IODINE 5% OPHTHALMIC PREP 30 ML SOLUTION OD ONE (08:36)
[2020-11-23] MEDS ORDERED: BSS (NA/CA/MG/K) BALANCED SALT SOLUTION OPHTH SOLN 15 ML BOTTLE OD ONE (08:37)
[2020-11-23] MEDS ORDERED: TRYPAN BLUE 0.5 ML DISP.SYRIN ONE (08:38)
[2020-11-23] MEDS ORDERED: CHONDROITIN SU A/HYALUR SOD 1 KIT IO ONE (08:42)
[2020-11-23] MEDS ORDERED: LIDOCAINE HCL 1% PRESERVATIVE FREE - 30ML VIAL IO ONE (08:42)
[2020-11-23] MEDS ORDERED: TOBRAMYCIN/DEXAMETHASONE OPHTH. OINTMENT 1 TUBE TP ONE (09:04)
[2020-11-23 09:35] VITALS: PULSE 66
[2020-11-23 10:22] VITALS: BP 155/71; TEMP 98.5
[2020-11-23] MEDS ORDERED: ONDANSETRON 4 MG/2 ML VIAL IVPUSH PRN (10:51)
[2020-11-23] MEDS ORDERED: LACTATED RINGERS SOLUTION 1,000 ML IV SCH (11:00)
== END 2020-11-23 10:10 | disposition home or self-care (01) ==
LOC: JASU-SURG 04:32
PROVIDERS: ATTEND Ophthalmology
PROC: 08RJ3JZ Replacement of Right Lens with Synthetic Substitute, Percutaneous Approach (ICD-10-PCS; principal; 2020-11-23 08:30)
DX: H25.11 Age-related nuclear cataract, right eye (principal); H57.03 Miosis
CPT/HCPCS: 82962; J1097

== ENCOUNTER 2021-03-23 15:22 | Emergency (ER) | payer OTHER ==
[2021-03-23 15:30] VITALS: BP 159/77; PULSE 76; BMI 26.6
[2021-03-23] MEDS ORDERED: METOCLOPRAMIDE HCL INJECTION 10 MG/2 ML VIAL IVPUSH ONE (16:57)
[2021-03-23 17:03] LABS: BASO % 0.7 % (0-2.0); EOS % 3.5 % (0-4.5); HEMATOCRIT 39.6 % (35.4-49); HEMOGLOBIN 13.2 GM/dL (11.7-16.9); LYMPH % 35.7 % (8-40); MCH 29.3 pg (25.7-33.7); MCHC 33.4 g/dl (32.0-35.9); MEAN CELL VOLUME 87.8 fl (80-96); MEAN PLT VOLUME 7.6 fl (7.5-11.1); MONO % 9.9 % (3.8-10.2); NEUT % 50.2 % (42.8-82.8); PLATELET COUNT 316 10^3/uL (134-434); RBC 4.51 M/mm3 (4.00-5.60); RDW 12.5 % (11.9-15.9); WHITE BLOOD COUNT 4.2 K/mm3 (4.0-10.0)
[2021-03-23 17:07] VITALS: TEMP 98.3
[2021-03-23] MEDS ORDERED: METOCLOPRAMIDE HCL INJECTION 10 MG/2 ML VIAL ONE (17:07)
[2021-03-23 17:20] LABS: ALBUMIN 3.7 g/dl (3.4-5.0); BLOOD UREA NITROGEN 15.2 mg/dL (7-18); CALCIUM 9.4 mg/dL (8.5-10.1)
[2021-03-23 17:23] LABS: CREATININE 1.3 mg/dL (0.55-1.3)
[2021-03-23 17:24] LABS: BILIRUBIN,TOTAL 0.7 mg/dL (0.2-1)
[2021-03-23 17:25] LABS: TOT PROT 8.4 g/dl (6.4-8.2)
[2021-03-23 18:26] LABS: EPI CELLS 3 /uL (0-25.1); HYALINE CASTS 1 /uL (0-3.1); URINE APPEARANCE CLEAR; URINE BACTERIA 1 /uL (0-1359); URINE BILIRUBIN NEGATIVE (NEGATIVE); URINE COLOR YELLOW; URINE GLUCOSE (UA) TRACE (NEGATIVE); URINE KETONE NEGATIVE (NEGATIVE); URINE LEUK ESTERASE NEGATIVE (NEGATIVE); URINE NITRITE NEGATIVE (NEGATIVE); URINE PROTEIN 1+ (NEGATIVE); URINE RBC 4 /uL (0-23.9); URINE UROBILINOGEN 0.2 mg/dL (0.2-1.0); URINE WBC 4 /uL (0-25.8)
== END 2021-03-23 18:41 | disposition home or self-care (01) ==
LOC: JER 15:22
PROC: 3E033GC Introduction of Other Therapeutic Substance into Peripheral Vein, Percutaneous Approach (ICD-10-PCS; principal; 2021-03-23)
DX: R11.2 Nausea with vomiting, unspecified (principal)
CPT/HCPCS: 36415; 80053; 81003; 82550; 82553; 83605; 83690; 83735; 84100; 84484; 85025; 87086; 93005; 93010; 99284-25

== ENCOUNTER 2022-03-29 16:12 | Observation (INO) | payer OTHER ==
[2022-03-29] MEDS ORDERED: METOCLOPRAMIDE HCL INJECTION 10 MG/2 ML VIAL IVPB ONE (17:59)
[2022-03-29] MEDS ORDERED: FAMOTIDINE 20 MG/50 ML IVPB 20 MG/50 ML MG IVPB ONE ×2 (18:17→19:55)
[2022-03-29] MEDS ORDERED: MAG HYDROX/AL HYDROX/SIMETH 30 ML UNIT-DOSE CUP PO ONE (19:04)
[2022-03-29] MEDS ORDERED: METOCLOPRAMIDE HCL INJECTION 10 MG/2 ML VIAL ONE (19:54)
[2022-03-29] MEDS ORDERED: MAG HYDROX/AL HYDROX/SIMETH 30 ML UNIT-DOSE CUP ONE (19:55)
[2022-03-29 20:23] LABS: BASO % 0.5 % (0-2.0); EOS % 2.2 % (0-4.5); HEMATOCRIT 39.5 % (35.4-49); HEMOGLOBIN 13.6 GM/dL (11.7-16.9); LYMPH % 31.4 % (8-40); MCH 30.2 pg (25.7-33.7); MCHC 34.5 g/dl (32.0-35.9); MEAN CELL VOLUME 87.6 fl (80-96); MONO % 9.6 % (3.8-10.2); NEUT % 56.3 % (42.8-82.8); PLATELET COUNT 308 10^3/uL (134-434); RDW 12.9 % (11.9-15.9); WHITE BLOOD COUNT 4.4 K/mm3 (4.0-10.0)
[2022-03-29 20:55] LABS: ALBUMIN 3.9 g/dl (3.4-5.0); BLOOD UREA NITROGEN 13.2 mg/dL (7-18); MAGNESIUM 2.2 mg/dL (1.8-2.4)
[2022-03-29 20:58] LABS: CREATININE 1.2 mg/dL (0.55-1.3)
[2022-03-29 20:59] LABS: TOT PROT 8.2 g/dl (6.4-8.2)
[2022-03-29] MEDS ORDERED: POTASSIUM CHLORIDE ORAL LIQUID 20 MEQ/15 ML PO ONE (22:06)
[2022-03-29 22:15] LABS: CALCIUM 9.4 mg/dL (8.5-10.1)
[2022-03-29] MEDS ORDERED: ASPIRIN 81 MG CHEWABLE TABLETS PO ONE (22:29)
[2022-03-29] MEDS ORDERED: ASPIRIN 81 MG CHEWABLE TABLETS ONE (22:42)
[2022-03-29] MEDS ORDERED: POTASSIUM CHLORIDE ORAL LIQUID 20 MEQ/15 ML ONE (22:42)
[2022-03-30] MEDS ORDERED: ATORVASTATIN CA 40 MG TABLET (FP) PO ONE (00:09)
[2022-03-30] MEDS ORDERED: ATORVASTATIN CA 40 MG TABLET (FP) ONE (00:28)
[2022-03-30] MEDS ORDERED: amLODIPine BESYLATE 10 MG TABLET (FP) PO ONE (01:53)
[2022-03-30] MEDS ORDERED: LOSARTAN POTASSIUM 50 MG TABLET PO ONE (01:53)
[2022-03-30] MEDS ORDERED: LOSARTAN POTASSIUM 50 MG TABLET ONE (02:23)
[2022-03-30] MEDS ORDERED: amLODIPine BESYLATE 10 MG TABLET (FP) ONE (02:23)
[2022-03-30] MEDS: INSULIN SLIDING SCALE (NOVOLOG) 1 VIAL SQ SCH ×4 (06:24→21:11)
[2022-03-30 06:44] VITALS: BMI 24.8
[2022-03-30 09:25] LABS: HEMATOCRIT 39.4 % (35.4-49); HEMOGLOBIN 13.2 GM/dL (11.7-16.9); MCH 29.7 pg (25.7-33.7); MCHC 33.5 g/dl (32.0-35.9); MEAN CELL VOLUME 88.6 fl (80-96); MEAN PLT VOLUME 8.2 fl (7.5-11.1); PLATELET COUNT 300 10^3/uL (134-434); RBC 4.44 M/mm3 (4.00-5.60); RDW 12.7 % (11.9-15.9); WHITE BLOOD COUNT 3.4 K/mm3 (4.0-10.0)
[2022-03-30] MEDS: ASPIRIN COATED 81 MG TABLET.EC PO SCH (09:30)
[2022-03-30] MEDS: LOSARTAN POTASSIUM 50 MG TABLET PO SCH (09:30)
[2022-03-30] MEDS: ENOXAPARIN NA (PORCINE) 40 MG/0.4 ML DISP.SYRIN SQ SCH (09:30)
[2022-03-30] MEDS: amLODIPine BESYLATE 10 MG TABLET (FP) PO SCH (09:30)
[2022-03-30 09:47] LABS: BLOOD UREA NITROGEN 12.6 mg/dL (7-18); CALCIUM 9.3 mg/dL (8.5-10.1)
[2022-03-30 09:48] LABS: ALBUMIN 3.5 g/dl (3.4-5.0)
[2022-03-30 09:50] LABS: CREATININE 1.1 mg/dL (0.55-1.3)
[2022-03-30 09:52] LABS: BILIRUBIN,TOTAL 1.2 mg/dL (0.2-1); TOT PROT 7.2 g/dl (6.4-8.2)
[2022-03-30] MEDS: METOCLOPRAMIDE HCL 10 MG TABLET (FP) PO SCH ×2 (10:00→21:09)
[2022-03-30] MEDS: ATORVASTATIN CA 40 MG TABLET (FP) PO SCH (21:09)
[2022-03-31] MEDS: INSULIN SLIDING SCALE (NOVOLOG) 1 VIAL SQ SCH ×4 (05:59→22:31)
[2022-03-31 06:52] LABS: BASO % 1.2 % (0-2.0); EOS % 3.3 % (0-4.5); HEMATOCRIT 43.4 % (35.4-49); HEMOGLOBIN 14.3 GM/dL (11.7-16.9); LYMPH % 36.7 % (8-40); MCH 29.5 pg (25.7-33.7); MCHC 32.9 g/dl (32.0-35.9); MEAN CELL VOLUME 89.8 fl (80-96); MEAN PLT VOLUME 9.1 fl (7.5-11.1); NEUT % 48.8 % (42.8-82.8); PLATELET COUNT 330 10^3/uL (134-434); RBC 4.84 M/mm3 (4.00-5.60); RDW 13.8 % (11.9-15.9)
[2022-03-31 07:14] LABS: CHLORIDE 100 mmol/L (98-107); SODIUM 130 mmol/L (136-145)
[2022-03-31 07:16] LABS: ALBUMIN 3.6 g/dl (3.4-5.0); CALCIUM 9.1 mg/dL (8.5-10.1)
[2022-03-31 07:17] LABS: BLOOD UREA NITROGEN 13.6 mg/dL (7-18); CO2 26 mmol/L (21-32); GLUCOSE,RANDOM 163 mg/dL (74-106); MAGNESIUM 2.2 mg/dL (1.8-2.4)
[2022-03-31 07:19] LABS: PHOSPHOROUS 4.8 mg/dL (2.5-4.9)
[2022-03-31 07:20] LABS: CREATININE 1.3 mg/dL (0.55-1.3); SGOT/AST 90 U/L (15-37)
[2022-03-31 07:21] LABS: BILIRUBIN,TOTAL 1.4 mg/dL (0.2-1); TOT PROT 8.5 g/dl (6.4-8.2)
[2022-03-31 07:22] LABS: ALK PHOS 94 U/L (45-117)
[2022-03-31 07:23] LABS: ANION GAP 5 MMOL/L (8-16); SGPT/ALT 38 U/L (13-61)
[2022-03-31] MEDS: LOSARTAN POTASSIUM 50 MG TABLET PO SCH (09:27)
[2022-03-31] MEDS: ENOXAPARIN NA (PORCINE) 40 MG/0.4 ML DISP.SYRIN SQ SCH (09:28)
[2022-03-31] MEDS: ASPIRIN COATED 81 MG TABLET.EC PO SCH (09:28)
[2022-03-31] MEDS: amLODIPine BESYLATE 10 MG TABLET (FP) PO SCH (09:28)
[2022-03-31] MEDS: METOCLOPRAMIDE HCL 10 MG TABLET (FP) PO SCH ×2 (09:28→22:30)
[2022-03-31 13:13] LABS: CALCIUM 9.1 mg/dL (8.5-10.1)
[2022-03-31 13:14] LABS: ALBUMIN 3.3 g/dl (3.4-5.0); BLOOD UREA NITROGEN 14.5 mg/dL (7-18)
[2022-03-31 13:17] LABS: CREATININE 1.3 mg/dL (0.55-1.3)
[2022-03-31 13:18] LABS: TOT PROT 6.9 g/dl (6.4-8.2)
[2022-03-31 13:19] LABS: BILIRUBIN,TOTAL 0.7 mg/dL (0.2-1)
[2022-03-31] MEDS ORDERED: POTASSIUM CHLORIDE TABS 20 MEQ TABLET.ER (FP) PO ONE (18:17)
[2022-03-31] MEDS ORDERED: PATIENT'S OWN MEDICATION (NON-FORMULARY) (Metformin Hcl [Metformin Er Osmotic] 1,000 MG Ta PO SCH (22:00)
[2022-03-31] MEDS: ATORVASTATIN CA 40 MG TABLET (FP) PO SCH (22:30)
[2022-04-01] MEDS: INSULIN SLIDING SCALE (NOVOLOG) 1 VIAL SQ SCH ×4 (06:23→21:18)
[2022-04-01] MEDS ORDERED: glipiZIDE-XL 10 MG TAB.ER.24 (FP) PO SCH (07:00)
[2022-04-01] MEDS ORDERED: DOCUSATE SODIUM 100 MG CAPSULE (FP) PO PRN (09:19)
[2022-04-01] MEDS ORDERED: SENNOSIDES 8.6MG TABLET (FP) PO PRN (09:20)
[2022-04-01] MEDS: ASPIRIN COATED 81 MG TABLET.EC PO SCH (09:27)
[2022-04-01] MEDS: LOSARTAN POTASSIUM 50 MG TABLET PO SCH (09:27)
[2022-04-01] MEDS: amLODIPine BESYLATE 10 MG TABLET (FP) PO SCH (09:28)
[2022-04-01] MEDS: ENOXAPARIN NA (PORCINE) 40 MG/0.4 ML DISP.SYRIN SQ SCH (09:28)
[2022-04-01] MEDS: METOCLOPRAMIDE HCL 10 MG TABLET (FP) PO SCH ×2 (09:29→22:17)
[2022-04-01] MEDS: POLYETHYLENE GLYCOL (HEALTHYLAX) 3350 17 GM PACKET PO SCH ×2 (12:50→21:15)
[2022-04-01] MEDS ORDERED: SIMETHICONE 80 MG TAB.CHEW (FP) PO PRN (14:34)
[2022-04-01] MEDS ORDERED: MAG HYDROX/AL HYDROX/SIMETH 30 ML UNIT-DOSE CUP PO PRN (14:34)
[2022-04-01] MEDS ORDERED: ATORVASTATIN CA 80 MG TABLET (FP) PO SCH (14:42)
[2022-04-01] MEDS: HYDROCHLOROTHIAZIDE 12.5 MG CAPSULE (FP) PO SCH (16:10)
[2022-04-01] MEDS: CARVEDILOL 6.25 MG TABLET (FP) PO SCH (21:14)
[2022-04-01] MEDS: INSULIN (LEVEMIR) 100 UNITS/ML UNITS SQ SCH (21:17)
[2022-04-02] MEDS: INSULIN SLIDING SCALE (NOVOLOG) 1 VIAL SQ SCH ×3 (06:42→17:51)
[2022-04-02] MEDS: INSULIN (LEVEMIR) 100 UNITS/ML UNITS SQ SCH (06:44)
[2022-04-02 08:29] LABS: CALCIUM 9.4 mg/dL (8.5-10.1)
[2022-04-02 08:30] LABS: BLOOD UREA NITROGEN 16.4 mg/dL (7-18)
[2022-04-02 08:33] LABS: CREATININE 1.2 mg/dL (0.55-1.3)
[2022-04-02] MEDS ORDERED: SENNOSIDES 8.6MG TABLET (FP) PO ONE (09:17)
[2022-04-02] MEDS: METOCLOPRAMIDE HCL 10 MG TABLET (FP) PO SCH (10:02)
[2022-04-02] MEDS: POLYETHYLENE GLYCOL (HEALTHYLAX) 3350 17 GM PACKET PO SCH (10:03)
[2022-04-02] MEDS: ASPIRIN COATED 81 MG TABLET.EC PO SCH (10:04)
[2022-04-02] MEDS: LOSARTAN POTASSIUM 50 MG TABLET PO SCH (10:04)
[2022-04-02] MEDS: CARVEDILOL 6.25 MG TABLET (FP) PO SCH (10:04)
[2022-04-02] MEDS: amLODIPine BESYLATE 10 MG TABLET (FP) PO SCH (10:05)
[2022-04-02] MEDS: HYDROCHLOROTHIAZIDE 12.5 MG CAPSULE (FP) PO SCH (10:32)
[2022-04-02] MEDS: ENOXAPARIN NA (PORCINE) 40 MG/0.4 ML DISP.SYRIN SQ SCH (10:32)
[2022-04-02 12:57] VITALS: TEMP 98.2
[2022-04-02 16:38] VITALS: BP 128/67; PULSE 63; RESP 16
== END 2022-04-02 19:10 | disposition home or self-care (01) ==
LOC: JER 16:12 → JERBED 22:38 → J2W 03-30 06:13
PROVIDERS: ADMIT Hospitalist
PROC: 3E023GC Introduction of Other Therapeutic Substance into Muscle, Percutaneous Approach (ICD-10-PCS; principal; 2022-03-29)
PROC: 3E033GC Introduction of Other Therapeutic Substance into Peripheral Vein, Percutaneous Approach (ICD-10-PCS; 2022-03-29)
PROC: 3E013VG Introduction of Insulin into Subcutaneous Tissue, Percutaneous Approach (ICD-10-PCS; 2022-03-29)
DX: I13.10 Hypertensive heart and chronic kidney disease without heart failure, with stage 1 through stage 4 chronic kidney disease, or unspecified chronic kidney disease (principal); I16.0 Hypertensive urgency; N40.0 Benign prostatic hyperplasia without lower urinary tract symptoms; R77.8 Other specified abnormalities of plasma proteins; E11.22 Type 2 diabetes mellitus with diabetic chronic kidney disease; N18.9 Chronic kidney disease, unspecified; E78.5 Hyperlipidemia, unspecified; Z29.8 Encounter for other specified prophylactic measures; K29.70 Gastritis, unspecified, without bleeding
CPT/HCPCS: 36415; 71045-TC-FY; 78452-TC; 80048; 80053; 80061; 82962; 83036; 83690; 83735; 84100; 84443; 84484; 85025; 85027; 93005; 93010; 93017; 93306-TC; 96365; 96372; 99285-25; A9502; C9803-CS; G0378; U0003; U0005

== ENCOUNTER 2023-05-13 08:46 | Emergency (ER) | payer OTHER ==
[2023-05-13 08:59] VITALS: BP 176/85; PULSE 68; RESP 18; TEMP 98.2; BMI 25.9
[2023-05-13] MEDS ORDERED: ACETAMINOPHEN 500 MG TABLET (FP) PO ONE (10:01)
[2023-05-13] MEDS ORDERED: LIDOCAINE 5% TOPICAL PATCH TP ONE (12:04)
[2023-05-13] MEDS ORDERED: NAPROXEN 500 MG TABLET PO ONE (12:04)
[2023-05-13] MEDS ORDERED: NAPROXEN 500 MG TABLET ONE (12:07)
[2023-05-13] MEDS ORDERED: LIDOCAINE 5% TOPICAL PATCH ONE (12:09)
[2023-05-13 12:45] LABS: BASO % 0.9 % (0-2.0); EOS % 1.2 % (0-4.5); HEMATOCRIT 38.5 % (35.4-49); MCH 29.2 pg (25.7-33.7); MCHC 33.9 g/dl (32.0-35.9); MEAN CELL VOLUME 86.3 fl (80-96); MEAN PLT VOLUME 8.5 fl (7.5-11.1); MONO % 4.3 % (3.8-10.2); NEUT % 71.6 % (42.8-82.8); PLATELET COUNT 281 10^3/uL (134-434); RBC 4.46 M/mm3 (4.00-5.60); RDW 13.1 % (11.9-15.9); WHITE BLOOD COUNT 5.6 K/mm3 (4.0-10.0)
[2023-05-13 12:46] LABS: EPI CELLS 5 /uL (0-25.1); HYALINE CASTS 0 /uL (0-3.1); PH,URINE 7.5 (5.0-8.0); URINE APPEARANCE CLEAR; URINE BACTERIA 3 /uL (0-1359); URINE BILIRUBIN NEGATIVE (NEGATIVE); URINE COLOR YELLOW; URINE GLUCOSE (UA) 3+ (NEGATIVE); URINE KETONE 1+ (NEGATIVE); URINE LEUK ESTERASE NEGATIVE (NEGATIVE); URINE NITRITE NEGATIVE (NEGATIVE); URINE PROTEIN 2+ (NEGATIVE); URINE RBC 45 /uL (0-23.9); URINE UROBILINOGEN 0.2 mg/dL (0.2-1.0); URINE WBC 5 /uL (0-25.8)
[2023-05-13 12:51] LABS: INR 1.02 (0.83-1.09); PROTHROMBIN TIME (PATIENT) 11.8 SEC (9.7-13.0)
[2023-05-13 12:54] LABS: ACTIVATED PTT 29.1 SECONDS (25.2-36.5)
[2023-05-13 13:25] LABS: POTASSIUM 3.5 mmol/L (3.5-5.1)
[2023-05-13 13:29] LABS: CALCIUM 9.6 mg/dL (8.5-10.1)
[2023-05-13 13:30] LABS: ALBUMIN 3.7 g/dl (3.4-5.0); BLOOD UREA NITROGEN 12.3 mg/dL (7-18)
[2023-05-13 13:33] LABS: CREATININE 1.2 mg/dL (0.55-1.3)
[2023-05-13 13:35] LABS: BILIRUBIN,TOTAL 0.9 mg/dL (0.2-1)
[2023-05-13] MEDS ORDERED: LIDOCAINE PATCH REMOVAL MC SCH (22:00)
== END 2023-05-13 14:56 | disposition home or self-care (01) ==
LOC: JER 08:46
DX: M54.50 Low back pain, unspecified (principal); S39.012A Strain of muscle, fascia and tendon of lower back, initial encounter; X50.0XXA Overexertion from strenuous movement or load, initial encounter
CPT/HCPCS: 36415; 72100-TC-FY; 80053; 81003; 85025; 85610; 85730; 87086; 99284-25

== ENCOUNTER 2023-05-23 11:54 | Emergency (ER) | payer OTHER ==
[2023-05-23 12:04] VITALS: BP 184/85; PULSE 80; RESP 17; TEMP 98.1; BMI 26.1
[2023-05-23] MEDS ORDERED: ACETAMINOPHEN 1000 MG/100 ML BAG IVPB ONE (12:38)
[2023-05-23] MEDS ORDERED: ACETAMINOPHEN INJECTION 100 ML IVPB ONE (13:09)
[2023-05-23 13:34] LABS: BASO % 0.8 % (0-2.0); EOS % 4.9 % (0-4.5); HEMATOCRIT 40.3 % (35.4-49); HEMOGLOBIN 13.2 GM/dL (11.7-16.9); LYMPH % 29.3 % (8-40); MCHC 32.7 g/dl (32.0-35.9); MEAN CELL VOLUME 88.5 fl (80-96); MEAN PLT VOLUME 8.1 fl (7.5-11.1); MONO % 7.9 % (3.8-10.2); NEUT % 57.1 % (42.8-82.8); PLATELET COUNT 313 10^3/uL (134-434); RBC 4.55 M/mm3 (4.00-5.60); WHITE BLOOD COUNT 5.5 K/mm3 (4.0-10.0)
[2023-05-23 13:45] LABS: POTASSIUM 4.8 mmol/L (3.5-5.1)
[2023-05-23 13:48] LABS: ALBUMIN 3.6 g/dl (3.4-5.0); BLOOD UREA NITROGEN 10.3 mg/dL (7-18); CALCIUM 9.5 mg/dL (8.5-10.1)
[2023-05-23 13:52] LABS: BILIRUBIN,TOTAL 0.7 mg/dL (0.2-1); CREATININE 1.2 mg/dL (0.55-1.3); TOT PROT 8.2 g/dl (6.4-8.2)
[2023-05-23 17:23] LABS: EPI CELLS 5 /uL (0-25.1); HYALINE CASTS 0 /uL (0-3.1); URINE APPEARANCE Clear; URINE BACTERIA 4 /uL (0-1359); URINE BILIRUBIN Negative (NEGATIVE); URINE COLOR Yellow; URINE GLUCOSE (UA) 250 (NEGATIVE); URINE KETONE Negative (NEGATIVE); URINE LEUK ESTERASE Negative (NEGATIVE); URINE NITRITE Negative (NEGATIVE); URINE PROTEIN 100 (NEGATIVE); URINE RBC 18 /uL (0-23.9); URINE UROBILINOGEN 0.2 mg/dL (0.2-1.0); URINE WBC 5 /uL (0-25.8)
== END 2023-05-23 17:33 | disposition home or self-care (01) ==
LOC: JER 11:54
PROC: 3E033NZ Introduction of Analgesics, Hypnotics, Sedatives into Peripheral Vein, Percutaneous Approach (ICD-10-PCS; principal; 2023-05-23)
DX: R10.31 Right lower quadrant pain (principal); M54.50 Low back pain, unspecified; X50.0XXA Overexertion from strenuous movement or load, initial encounter
CPT/HCPCS: 36415; 74177-TC; 80053; 81003; 85025; 87086; 96374; 99285-25; Q9967

== ENCOUNTER 2023-06-01 07:32 | Emergency (ER) | payer OTHER ==
[2023-06-01 07:37] VITALS: BMI 25.1
[2023-06-01] MEDS ORDERED: ACETAMINOPHEN 500 MG TABLET (FP) PO ONE (08:47)
[2023-06-01] MEDS ORDERED: LIDOCAINE 5% TOPICAL PATCH TP ONE (08:47)
[2023-06-01] MEDS ORDERED: LIDOCAINE 4% PATCH TP ONE (08:55)
[2023-06-01] MEDS ORDERED: ACETAMINOPHEN 325 MG TABLET (FP) ONE (08:56)
[2023-06-01 09:18] LABS: BASO % 1.1 % (0-2.0); HEMOGLOBIN 12.3 GM/dL (11.7-16.9); LYMPH % 30.3 % (8-40); MCH 29.5 pg (25.7-33.7); MEAN CELL VOLUME 86.7 fl (80-96); MEAN PLT VOLUME 8.1 fl (7.5-11.1); MONO % 8.8 % (3.8-10.2); NEUT % 52.8 % (42.8-82.8); PLATELET COUNT 262 10^3/uL (134-434); RBC 4.15 M/mm3 (4.00-5.60); WHITE BLOOD COUNT 3.7 K/mm3 (4.0-10.0)
[2023-06-01 09:47] LABS: POTASSIUM 3.8 mmol/L (3.5-5.1)
[2023-06-01 09:49] LABS: ALBUMIN 3.6 g/dl (3.4-5.0); BLOOD UREA NITROGEN 13.1 mg/dL (7-18)
[2023-06-01 09:52] LABS: CREATININE 1.2 mg/dL (0.55-1.3)
[2023-06-01 09:54] LABS: BILIRUBIN,TOTAL 0.8 mg/dL (0.2-1); TOT PROT 7.4 g/dl (6.4-8.2)
[2023-06-01] MEDS ORDERED: KETOROLAC TROMETHAMINE 15 MG/ML VIAL IVPUSH ONE (13:51)
[2023-06-01] MEDS ORDERED: KETOROLAC TROMETHAMINE 15 MG/ML VIAL ONE (14:13)
[2023-06-01 15:53] VITALS: BP 161/80; PULSE 69; RESP 17; TEMP 98.4
[2023-06-01] MEDS ORDERED: LIDOCAINE PATCH REMOVAL MC SCH ×2 (22:00)
== END 2023-06-01 15:46 | disposition home or self-care (01) ==
LOC: JER 07:32
PROC: 3E0333Z Introduction of Anti-inflammatory into Peripheral Vein, Percutaneous Approach (ICD-10-PCS; principal; 2023-06-01)
DX: M54.41 Lumbago with sciatica, right side (principal)
CPT/HCPCS: 36415; 75635-TC; 80053; 85025; 93005; 93010; 96374; 99285-25; Q9967